=== PATIENT | female | born 1975 | race Caucasian/White ===

== ENCOUNTER → 2016-11-21 | Outpatient (REF) | payer BC ==
[~2016-11-21] MED LIST: FLEX10TA2 PO; META800T82 PO; NORCOTAB PO; TYLE325T5 PO
== END ==
LOC: M LAB REF 09:57
PROVIDERS: ATTEND Physician Assistant Medical
DX: N39.0 Urinary tract infection, site not specified (principal)

== ENCOUNTER → 2017-03-31 | Outpatient (REF) ==
--- NOTE | 2017-03-31 07:58 | REPMRS ---
Patient History The patient states she had a clinical breast exam in March 2017.Patient is nulliparous. No known family history of cancer. Digital Mammo Screening Bilat: March 31, 2017 - Exam #: [id number] Bilateral CC and MLO view(s) were taken. Technologist: Halima Shen, Technologist No prior studies available for comparison. FINDINGS: There are scattered fibroglandular densities. There is no evidence of dominant mass, architectural distortion, or clustered microcalcification typical of malignancy. ASSESSMENT: BI-RADS/ACR category 1 mammogram. Negative. Recommendation Routine screening mammogram of both breasts in 1 year (for women over age 40). This mammogram was interpreted with the aid of an FDA-approved computer-aided dectection system. Electronically Signed By: Akira Paredes MD 03/31/17 0757
== END ==
LOC: M RAD 07:18 → EDSTATUS 07:30
PROVIDERS: ATTEND Nurse Practitioner Family
DX: Z12.31 Encounter for screening mammogram for malignant neoplasm of breast (principal)

== ENCOUNTER → 2018-04-04 | Outpatient (CLI) | payer OTHER | LOC: M RAD 08:15 | DX: Z12.31 Encounter for screening mammogram for malignant neoplasm of breast (principal) | CPT/HCPCS: 77067 ==

== ENCOUNTER → 2018-07-05 | Outpatient (CLI) | payer OTHER ==
[2018-07-05 10:17] LABS: ALBUMIN 3.7 GM/DL (3.2-5.2); ALBUMIN/GLOBULIN RATIO 1.48 (1.00-1.93); ALKALINE PHOSPHATASE 60 U/L (45-117); ALT/SGPT 21 U/L (12-78); ANION GAP 7 MEQ/L (8-16); AST/SGOT 12 U/L (7-37); BILIRUBIN,TOTAL 0.3 MG/DL (0.2-1.0); BLOOD UREA NITROGEN 12 MG/DL (7-18); CALCIUM LEVEL 8.8 MG/DL (8.5-10.1); CARBON DIOXIDE LEVEL 25 MEQ/L (21-32); CHLORIDE LEVEL 110 MEQ/L (98-107); CREATININE FOR GFR 0.66 MG/DL (0.55-1.30); GLOMERULAR FILTRATION RATE > 60.0 (>58); GLUCOSE, FASTING 92 MG/DL (70-100); SODIUM LEVEL 142 MEQ/L (136-145); TOTAL PROTEIN 6.2 GM/DL (6.4-8.2)
[2018-07-05 10:21] LABS: TOTAL 25(OH) VITAMIN D 14.1 NG/ML (30.0-100.0)
[2018-07-05 10:23] LABS: FOLATE > 24.0 NG/ML
== END ==
LOC: M LAB 08:59
DX: G44.221 Chronic tension-type headache, intractable (principal); G43.009 Migraine without aura, not intractable, without status migrainosus

== ENCOUNTER 2019-04-04 13:06 | Emergency (ER) | payer OTHER ==
[~2019-04-04] VITALS: Ht 157.5 cm; Wt 99.5 kg
[2019-04-04] MEDS ORDERED: PANT40TA3 (13:17)
[2019-04-04] MEDS ORDERED: BACL1TAB9 PO (13:17)
[2019-04-04] MEDS ORDERED: VITA500045 (13:17)
[2019-04-04] MEDS ORDERED: AMIT25TA (13:17)
[2019-04-04] MEDS ORDERED: GABA600T4 PO (13:17)
[2019-04-04] MEDS ORDERED: TRAZ-257 PO (13:17)
[2019-04-04] MEDS ORDERED: VALA500T5 PO (13:17)
[2019-04-04] MEDS ORDERED: TOPI100T9 PO (13:17)
[2019-04-04] MEDS ORDERED: CITA20TA6 (13:17)
[2019-04-04] MEDS ORDERED: DIAZ5TAB PO (13:17)
[2019-04-04] MEDS ORDERED: HYDR-4571 (13:17)
[2019-04-04] MEDS ORDERED: ONDANSETRON 4 MG ORAL DISINTEGRATING TAB (Q0162 PER 1MG) PO ONE (19:30)
[2019-04-04] MEDS ORDERED: GI COCKTAIL 50ML BTL(HYOSCYAMINE/MAALOX/LIDOCAINE VISCOUS)(1:3:1) PO ONE (19:45)
[2019-04-04 20:00] LABS: BASO # 0.1 10^3/uL (0.0-0.2); EOS # 0.1 10^3/uL (0.0-0.50); EOS % 2.1 % (0.0-3.0); HEMATOCRIT 40.8 % (36.0-47.0); HEMOGLOBIN 13.7 g/dl (12.0-15.5); LYMPH # 2.2 10^3/uL (1.5-4.5); LYMPH % 41.4 % (24.0-44.0); MEAN CORPUSCULAR HEMOGLOBIN 32.3 pg (27.0-33.0); MEAN CORPUSCULAR HGB CONC 33.6 g/dl (32.0-36.5); MEAN CORPUSCULAR VOLUME 96.2 fl (80.0-96.0); MONO # 0.3 10^3/uL (0.0-0.8); MONO % 5.8 % (0.0-5.0); NEUTROPHILS # 2.6 10^3/uL (1.8-7.7); NEUTROPHILS % 49.5 % (36.0-66.0); PLATELET COUNT, AUTOMATED 228 10^3/uL (150-450); RED BLOOD COUNT 4.24 10^6/uL (4.00-5.40); WHITE BLOOD COUNT 5.2 10^3/uL (4.0-10.0)
[2019-04-04] MEDS ORDERED: MORPHINE 4 MG/ML 1ML VIAL/SYRINGE (J2270) IV ONE (20:15)
[2019-04-04] MEDS ORDERED: NS 1,000 ML IV ONE (20:15)
[2019-04-04 20:27] LABS: ALBUMIN 4.2 GM/DL (3.2-5.2); BILIRUBIN,DIRECT 0.1 MG/DL (0.0-0.2); BILIRUBIN,TOTAL 0.3 MG/DL (0.2-1.0); TOTAL PROTEIN 7.2 GM/DL (6.4-8.2)
[2019-04-04] MEDS ORDERED: ISOVUE-370 76% 100ML VIAL (Q9967) As Ordered ONE (21:02)
[2019-04-04] MEDS ORDERED: METOCLOPRAMIDE INJ 10MG/2ML VIAL (J2765) IV ONE (22:00)
--- NOTE | 2019-04-04 22:19 | REPVR ---
EXAM: CT Abdomen and Pelvis With Contrast EXAM DATE/TIME: 04/04/2019 9:17 PM CLINICAL HISTORY: 43 years old, female; Abdominal pain; Localized; Left upper quadrant (luq); Additional info: Left upper abd pain TECHNIQUE: Imaging protocol: Axial computed tomography images of the abdomen and pelvis with intravenous contrast. Coronal and sagittal reformatted images were created and reviewed. Radiation optimization: All CT scans at this facility use at least one of these dose optimization techniques: automated exposure control; mA and/or kV adjustment per patient size (includes targeted exams where dose is matched to clinical indication); or iterative reconstruction. Contrast material: ISOVUE 370; Contrast volume: 100 ml; Contrast route: IV; COMPARISON: CT ABD PELVIS W/O CONTRAST 06/05/2013 1:27 PM FINDINGS: Liver: There is a diffuse decrease in hepatic parenchymal density, consistent with fatty infiltration. Gallbladder and bile ducts: There has been a cholecystectomy. Pancreas: Normal. No ductal dilation. Spleen: Normal. No splenomegaly. Adrenals: Normal. No mass. Kidneys and ureters: Left renal cysts measure up to 5.7 x 5.5 cm. Otherwise unremarkable. Stomach and bowel: This patient is status post gastric bypass surgery. Multiple thickwalled loops of small bowel in the upper abdomen, findings which may indicate the presence of enteritis or inflammatory bowel disease. There is increased feces throughout the colon consistent with constipation. Appendix: There has been an appendectomy. Intraperitoneal space: Normal. No free air. No significant fluid collection. Vasculature: Normal. No abdominal aortic aneurysm. Lymph nodes: Normal. No enlarged lymph nodes. Bladder: Unremarkable as visualized. Reproductive: IUD demonstrated in a dextro tilted uterus. Bones/joints: Moderate central spinal stenosis at L2-3, L3-4, L4-5. Soft tissues: Unremarkable. Other findings: Shallow levoscoliosis. IMPRESSION: 1. There is a diffuse decrease in hepatic parenchymal density, consistent with fatty infiltration. 2. There has been a cholecystectomy. 3. This patient is status post gastric bypass surgery. 4. Multiple thickwalled loops of small bowel in the upper abdomen, findings which may indicate the presence of enteritis or inflammatory bowel disease. 5. There is increased feces throughout the colon consistent with constipation. Electronically signed by: Zhao Parish On 04/04/2019 22:19:10 PM
[2019-04-04] MEDS ORDERED: MIRA3350 PO (22:31)
[2019-04-04 22:47] VITALS: BP 130/80
--- NOTE | 2019-04-05 10:33 | ECGEPIP ---
[facility] - ED Test Date: 2019-04-04 Pat Name: LILY ROBLEDO Department: Room: - Gender: Female Machine Icer: MICHAEL : 1975 Requested By: Salomon Camejo Order Number: [id number] Reading MD: Violet Myrick Measurements Intervals [place] Rate: 50 P: 40 MT: 154 QRS: 57 QRSD: 93 T: 55 QT: 437 QTc: 400 Interpretive Statements SINUS BRADYCARDIA No prior Electronically Signed on 04-05-2019 10:33:27 EDT by Violet Myrick
[2019-10-01] MEDS ORDERED: QC A650T3 PO (11:34)
[2019-10-01] MEDS ORDERED: LINZ145C PO (11:34)
[2019-10-01] MEDS ORDERED: NORC1TAB7 PO (11:34)
[2019-10-01] MEDS ORDERED: BRONCHW PO (11:34)
[2019-10-01] MEDS ORDERED: COLA100C5 PO (11:34)
[2019-10-01] MEDS ORDERED: ZOFR4TAB16 PO (11:34)
[2019-10-01] MEDS ORDERED: MAGN250T7 PO (11:34)
[2019-10-01] MEDS ORDERED: VITA200028 PO (11:34)
== END 2019-04-04 22:51 | disposition home or self-care (01) ==
LOC: M ED 13:06
DX: K52.9 Noninfective gastroenteritis and colitis, unspecified (principal); K59.00 Constipation, unspecified; R00.1 Bradycardia, unspecified; K21.9 Gastro-esophageal reflux disease without esophagitis; M54.9 Dorsalgia, unspecified; G51.0 Bell's palsy; Z98.84 Bariatric surgery status; Z88.0 Allergy status to penicillin; Z88.2 Allergy status to sulfonamides; Z88.1 Allergy status to other antibiotic agents; Z79.899 Other long term (current) drug therapy
CPT/HCPCS: 36415; 74177; 80047; 80076; 81001; 83690; 84702; 85025; 93005; 96374; 96375; 99284; J2270; J2765; Q0162; Q9967

== ENCOUNTER → 2019-04-11 | Outpatient (CLI) | payer OTHER ==
[~2019-04-11] MED LIST changes: +AMIT25TA; +BACL1TAB9; +CITA20TA6; +DIAZ5TAB; +GABA600T4; +HYDR-4571; +MIRA3350 PO; +PANT40TA3; +TOPI100T9; +TRAZ-163; +VALA500T5; +VITA500045
--- NOTE | 2019-04-11 16:12 | REPMRS ---
Patient History The patient states she had a clinical breast exam in March 2019. No known family history of cancer. Bilateral breast reduction 2006 3D TOMOSYNTHESIS WAS PERFORMED. [facility] lifetime risk for breast cancer is 15.5%. Digital Mammo Screening Bilat: April 11, 2019 - Exam #: [id number] Bilateral CC and MLO view(s) were taken. Technologist: Monica Dominguez, Technologist Prior study comparison: April 04, 2018, bilateral digital mammo screening bilat performed at [facility]. March 31, 2017, bilateral digital mammo screening bilat performed at [facility]. FINDINGS: There are scattered fibroglandular densities. There has been no change in the appearance of the mammogram from the prior studies. There is a mild amount of residual fibroglandular tissue which is fairly symmetric. There is no interval development of dominant mass, architectural distortion, or clustered microcalcification suggestive of malignancy. Assessment: BI-RADS/ACR category 1 mammogram. Negative Mammogram. Recommendation Routine screening mammogram in 1 year (for women over age 40). This mammogram was interpreted with the aid of an FDA-approved computer-aided dectection system. Electronically Signed By: Stewart Bradford MD 04/11/19 2628
== END ==
LOC: M RAD 14:26
PROVIDERS: ATTEND Nurse Practitioner Family
DX: Z12.31 Encounter for screening mammogram for malignant neoplasm of breast (principal); Z98.890 Other specified postprocedural states

== ENCOUNTER → 2019-09-05 | Outpatient (CLI) | payer OTHER ==
[2019-09-05 09:01] LABS: MEAN CORPUSCULAR HEMOGLOBIN 31.8 pg (27.0-33.0); MEAN CORPUSCULAR HGB CONC 32.6 g/dl (32.0-36.5); MEAN CORPUSCULAR VOLUME 97.7 fl (80.0-96.0); PLATELET COUNT, AUTOMATED 219 10^3/uL (150-450); WHITE BLOOD COUNT 3.8 10^3/uL (4.0-10.0)
[2019-09-05 09:32] LABS: ALBUMIN 3.9 GM/DL (3.2-5.2); ALT/SGPT 30 U/L (12-78); BILIRUBIN,TOTAL 0.4 MG/DL (0.2-1.0); BLOOD UREA NITROGEN 11 MG/DL (7-18); CALCIUM LEVEL 8.6 MG/DL (8.5-10.1); CARBON DIOXIDE LEVEL 25 MEQ/L (21-32); CHLORIDE LEVEL 113 MEQ/L (98-107); CREATININE FOR GFR 0.69 MG/DL (0.55-1.30); GLOMERULAR FILTRATION RATE > 60.0 (>58); GLUCOSE, FASTING 82 MG/DL (70-100); IRON (FE) 121 UG/DL (50-170); SODIUM LEVEL 143 MEQ/L (136-145); TOTAL PROTEIN 6.5 GM/DL (6.4-8.2)
== END ==
LOC: M LAB 07:36
PROVIDERS: ATTEND Family Medicine
DX: E16.2 Hypoglycemia, unspecified (principal); F41.9 Anxiety disorder, unspecified; K21.9 Gastro-esophageal reflux disease without esophagitis; Z13.0 Encounter for screening for diseases of the blood and blood-forming organs and certain disorders involving the immune mechanism; Z13.29 Encounter for screening for other suspected endocrine disorder

== ENCOUNTER → 2019-09-05 | Outpatient (CLI) | payer OTHER ==
[~2019-09-05] MED LIST changes: +E-Z-PAQUE 96% w/w SUSP 176GM BTL As Ordered ONE
--- NOTE | 2019-09-05 16:22 | REP ---
Small bowel follow-through The procedure was performed under the direct supervision of Dr. Bradford. The images were reviewed with Dr. Bardford. The manager product support film shows no organomegaly or pathological masses. The intestinal gas pattern is nonspecific. There are surgical clips noted in the right upper quadrant. There are bowel sutures noted in the epigastric region and left abdomen consistent with the patient's history of gastric bypass. There is an IUD in place. Liquid barium was administered and the barium column was followed through the small bowel to the level of the terminal ileum. Small bowel transit time is approximately 90 minutes. . During fluoroscopy gentle palpation shows all loops are freely movable and pliable. There are no fixed or angulated loops. The small bowel mucosal pattern is normal in course and caliber. There is no transition to suggest a partial small bowel obstruction. Spot filming of the terminal ileum shows it to be unremarkable. Impression: Small bowel follow-through examination within normal limits. 1.9 minutes of fluoro time was utilized for this procedure. Electronically Signed by SANDRA Maldonado 09/05/2019 04:07 P Electronically Signed by Stewart Bradford MD 09/05/2019 04:13 P
== END ==
LOC: M RAD 07:33
PROVIDERS: ATTEND Surgery
DX: R10.84 Generalized abdominal pain (principal)

== ENCOUNTER 2019-10-05 07:54 | Day surgery (SDC) | payer OTHER ==
[~2019-10-05] VITALS: Ht 157.5 cm; Wt 97.0 kg
[~2019-10-05 07:54] MED LIST changes: -BACL1TAB9; +BACL1TAB9 PO; +BRONCHW PO; +COLA100C5 PO; -DIAZ5TAB; +DIAZ5TAB PO; -E-Z-PAQUE 96% w/w SUSP 176GM BTL As Ordered ONE; -GABA600T4; +GABA600T4 PO; +LINZ145C PO; +LR 1,000 ML IV ONE; +MAGN250T7 PO; +NORC1TAB7 PO; +QC A650T3 PO; -TOPI100T9; +TOPI100T9 PO; -TRAZ-163; +TRAZ-163 PO; -VALA500T5; +VALA500T5 PO; +VITA200028 PO; +ZOFR4TAB16 PO
[2019-10-05] MEDS ORDERED: SCOPOLAMINE 1MG TRANSDERMAL PATCH As Ordered ONE (09:14)
[2019-10-05] MEDS ORDERED: SCOPOLAMINE 1MG TRANSDERMAL PATCH TOP ONE (09:30)
[2019-10-05] MEDS ORDERED: MIDAZOLAM INJ 2 MG/2 ML VIAL (J2250) As Ordered ONE (09:35)
[2019-10-05] MEDS ORDERED: fentaNYL 250 MCG/5 ML INJECTION (J3010) As Ordered ONE (09:35)
[2019-10-05] MEDS ORDERED: PROPOFOL 200 MG/20 ML VIAL As Ordered ONE (09:37)
[2019-10-05] MEDS ORDERED: LIDOCAINE 2% INJ 100 MG/5 ML SDV (FOR ANES.) As Ordered ONE (09:37)
[2019-10-05] MEDS ORDERED: dexameTHASONE 4 MG/ML 1ML VIAL (J1100) As Ordered ONE (09:38)
[2019-10-05] MEDS ORDERED: ROCURONIUM BROMIDE 50 MG/5 ML VIAL As Ordered ONE (09:38)
[2019-10-05] MEDS ORDERED: ONDANSETRON 4MG/2ML VIAL (J2405) As Ordered ONE (09:38)
[2019-10-05] MEDS ORDERED: BUPIVACAINE/EPIN 0.25% 30 ML VIAL As Ordered ONE (11:00)
[2019-10-05] MEDS ORDERED: ACETAMINOPHEN 1000MG 100ML IV BTL (OFIRMEV) (J0131 PER 10MG) As Ordered ONE (11:38)
[2019-10-05] MEDS ORDERED: SUGAMMADEX SODIUM 500 MG/5 ML VIAL (BRIDION) As Ordered ONE (11:45)
[2019-10-05] MEDS ORDERED: oxyCODONE 5MG TAB As Ordered ONE (12:10)
[2019-10-05] MEDS ORDERED: fentaNYL 100 MCG/2 ML INJECTION (J3010) As Ordered ONE (12:10)
[2019-10-05] MEDS: fentaNYL 100 MCG/2 ML INJECTION (J3010) IV PRN ×3 (12:15→12:29)
[2019-10-05] MEDS: oxyCODONE 5MG TAB PO PRN ×2 (12:15→13:16)
[2019-10-05] MEDS ORDERED: ONDANSETRON 4MG/2ML VIAL (J2405) IV PRN (13:00)
[2019-10-05] MEDS ORDERED: LR 1,000 ML IV SCH (13:00)
[2019-10-05] MEDS ORDERED: NORCO, ANEXSIA 5/325MG TABLET (HYDROcodone/ACETAMINOPHEN) PO PRN (14:00)
--- NOTE | 2019-10-05 14:39 | RO ---
DATE OF PROCEDURE: 10/05/2018 PREOPERATIVE DIAGNOSIS: Left lower quadrant pain. POSTOPERATIVE DIAGNOSIS: Large left ovarian mass, small umbilical hernia. No adhesions. PROCEDURE: Diagnostic laparoscopy. SURGEON: Dr. Segura. GUNNERY/ORDNANCE OFFICER: None ANESTHESIA: General. ESTIMATED BLOOD LOSS: 2 mL. COMPLICATIONS: None. INDICATIONS FOR PROCEDURE: The patient is 44-year-old female who has had a few abdominal surgeries in the past and has had persistent left lower quadrant pain that doubles her over for the past couple years. The pain is intermittent. Workup has been negative so far so recommendation was to proceed with diagnostic laparoscopy. Risks and benefits of the procedure, not limited to but including bleeding, infection, hernia formation, damage to surrounding structures, need for further surgery were discussed in detail with the patient. Informed consent was obtained and procedure was planned. DESCRIPTION OF PROCEDURE: The patient brought back to operating room 6. After sufficient sedation, the abdomen was sterilely prepped and draped. Next, time-out was done to confirm proper patient and proper procedure. Following that, a 5 mm incision was made in left lower quadrant, Veress needle was inserted and the abdomen was insufflated to 15 mmHg. Veress needle was then removed and a 5 mm OptiView port was used to gain access to the abdomen. Once the abdomen was entered, the abdomen was examined. There were no signs of any adhesions or masses anywhere. Another 5 mm port was then placed in the left lower quadrant. The patient was then placed in Trendelenburg position. The pelvis was examined. There is a very large ovary identified on the left side. Very large, smooth surface to it. The right side appeared normal. Pictures were taken. Dr. Barr was in the next room and I had him come over and evaluate it. 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 Since she was not consented for that, I told him we would hold off and I would send her to him office afterwards. The rest of the abdomen was examined. There was a very tiny umbilical hernia identified, nothing was even protruding up through it, just a small defect since there were no signs of any fat or anything protruding through it, I decided not to fix that at this time. The small bowel and sigmoid were mobilized in the left lower quadrant looking for any other masses or adhesions that may have been hiding and nothing else was identified. The abdomen was then desufflated. Skin incisions were closed with 4-0 Vicryl subcuticular sutures. The abdomen was cleaned and dried. Steri-Strips, 4x4 and tape were applied, thus ending procedure.
[2019-10-05 14:45] VITALS: BP 95/53
== END 2019-10-05 14:50 | disposition home or self-care (01) ==
LOC: M SDC 07:54
PROVIDERS: ATTEND Surgery
DX: N83.9 Noninflammatory disorder of ovary, fallopian tube and broad ligament, unspecified (principal); K42.9 Umbilical hernia without obstruction or gangrene; K21.9 Gastro-esophageal reflux disease without esophagitis; M48.00 Spinal stenosis, site unspecified; M51.9 Unspecified thoracic, thoracolumbar and lumbosacral intervertebral disc disorder; D51.0 Vitamin B12 deficiency anemia due to intrinsic factor deficiency; K59.09 Other constipation; G43.909 Migraine, unspecified, not intractable, without status migrainosus; F39 Unspecified mood [affective] disorder; Z98.84 Bariatric surgery status; Z88.1 Allergy status to other antibiotic agents; Z88.0 Allergy status to penicillin; Z88.2 Allergy status to sulfonamides; Z79.899 Other long term (current) drug therapy
CPT/HCPCS: 49320; 81025; J0131; J1100; J2250; J2405; J3010

== ENCOUNTER → 2019-11-05 | Outpatient (CLI) | payer OTHER ==
[~2019-11-05] MED LIST changes: +ISOVUE-370 76% 100ML VIAL (Q9967) As Ordered ONE; -LR 1,000 ML IV ONE; -TRAZ-163 PO; +TRAZ-257 PO
--- NOTE | 2019-11-06 07:48 | REP ---
Clinical: Ovarian cyst. Technique: Axial contrast enhanced images from the lung bases to the pubic symphysis using 100 ml Isovue 370 intravenous contrast material with coronal and sagittal re-formations including pre and postcontrast CT of the abdomen. Comparison: 04/04/2019. Findings: Lung bases are relatively clear. Calcified granuloma noted. Visualized heart and pericardium normal. Liver, spleen, pancreas, bilateral adrenal glands and right kidney are normal. Left kidney includes few simple cysts measuring up to approximately 5.7 cm maximal diameter. Evidence of prior cholecystectomy. The enteric system demonstrates small hiatal hernia along with evidence for prior gastric bypass surgery and appendectomy. No bowel obstruction or acute inflammatory process noted. Small fat containing periumbilical hernia identified. Pelvis demonstrates normal bladder and age-appropriate uterus/adnexa with IUD in satisfactory position. 2 cm rim enhancing right ovarian cyst nonspecific and likely physiologic. Impression: 1. Stable simple appearing left renal cysts up to 5.7 cm. 2. Small hiatal hernia. 3. Small fat containing periumbilical hernia. 4. Presumed incidental and likely physiologic 2 cm right ovarian cyst. Electronically Signed by Schuyler Mckinnon MD 11/06/2019 07:40 A
== END ==
LOC: M RAD 17:45
PROVIDERS: ATTEND Nurse Practitioner Family
DX: N83.202 Unspecified ovarian cyst, left side (principal)
CPT/HCPCS: 74178; Q9967

== ENCOUNTER → 2020-02-05 | Outpatient (REF) | payer OTHER ==
[~2020-02-05] MED LIST changes: -ISOVUE-370 76% 100ML VIAL (Q9967) As Ordered ONE
== END ==
LOC: M PLALAB 15:22
PROVIDERS: ATTEND Obstetrics & Gynecology
DX: Z01.419 Encounter for gynecological examination (general) (routine) without abnormal findings (principal)

== ENCOUNTER → 2020-04-30 | Outpatient (CLI) | payer OTHER ==
[~2020-04-30] MED LIST changes: +PANT40TA29; -PANT40TA3
--- NOTE | 2020-05-25 09:34 | REPMRS ---
Patient History The patient states she had a clinical breast exam in 02/2020. Patient is nulliparous. No known family history of cancer. Reductions of both breasts, 2006. Taking hormonal contraceptives for 25 years. Digital Woman Screen Mammo: April 30, 2020 - Exam #: [id number] Bilateral CC and MLO view(s) were taken. Technologist: Adelaide Booker, Technologist Prior study comparison: April 11, 2019, bilateral digital mammo screening bilat, performed at [facility]. April 04, 2018, bilateral digital mammo screening bilat, performed at [facility]. March 31, 2017, bilateral digital mammo screening bilat, performed at [facility]. FINDINGS: There are scattered fibroglandular densities. There has been no change in the appearance of the mammogram from the prior studies. There is a mild amount of scattered fibroglandular density which is fairly symmetric. There is no interval development of dominant mass, architectural distortion, or grouped microcalcification suggestive of malignancy. 3-D tomosynthesis shows no additional findings. Report was delayed due to a protracted network disruption experienced by this facility. Assessment: BI-RADS/ACR category 1 mammogram. Negative Mammogram. Recommendation Routine screening mammogram of both breasts in 1 year (for women over age 40). This patient's Lifetime Breast Cancer Risk is estimated at 15.3 %. This mammogram was interpreted with the aid of an FDA-approved computer-aided dectection system. Electronically Signed By: Akira Paredes MD 05/25/20 0933
== END ==
LOC: M WHC 17:11
PROVIDERS: ATTEND Obstetrics & Gynecology
DX: Z12.31 Encounter for screening mammogram for malignant neoplasm of breast (principal); Z79.3 Long term (current) use of hormonal contraceptives

== ENCOUNTER → 2020-07-10 | Outpatient (CLI) | payer OTHER | LOC: M LABSMTC 12:25 | PROVIDERS: ATTEND Pediatrics | DX: Z20.828 Contact with and (suspected) exposure to other viral communicable diseases (principal) | CPT/HCPCS: C9803; U0003 ==

== ENCOUNTER → 2020-09-30 | Outpatient (CLI) | payer OTHER | LOC: M LAB 11:25 | PROVIDERS: ATTEND Family Medicine | DX: Z01.84 Encounter for antibody response examination (principal); Z20.828 Contact with and (suspected) exposure to other viral communicable diseases ==

== ENCOUNTER → 2020-10-14 | Outpatient (CLI) | payer OTHER ==
[~2020-10-14] MED LIST changes: -AMIT25TA; +AMIT25TA17
[2020-10-14 10:24] LABS: ALBUMIN 3.7 GM/DL (3.2-5.2); ALT/SGPT 21 U/L (12-78); BILIRUBIN,TOTAL 0.5 MG/DL (0.2-1.0); BLOOD UREA NITROGEN 10 MG/DL (7-18); CALCIUM LEVEL 8.8 MG/DL (8.5-10.1); CARBON DIOXIDE LEVEL 24 MEQ/L (21-32); CHLORIDE LEVEL 111 MEQ/L (98-107); CREATININE FOR GFR 0.84 MG/DL (0.55-1.30); FREE T4 0.97 NG/DL (0.76-1.46); GLOMERULAR FILTRATION RATE > 60.0 (>58); GLUCOSE, FASTING 86 MG/DL (70-100); POTASSIUM SERUM 4.4 MEQ/L (3.5-5.1); SODIUM LEVEL 141 MEQ/L (136-145); THYROID STIMULATING HORMONE 0.992 uIU/ML (0.358-3.740); TOTAL PROTEIN 6.5 GM/DL (6.4-8.2)
== END ==
LOC: M LAB 09:08
PROVIDERS: ATTEND Nurse Practitioner Critical Care Medicine
DX: R10.13 Epigastric pain (principal)

== ENCOUNTER → 2020-10-20 | Outpatient (CLI) | payer OTHER ==
[~2020-10-20] MED LIST changes: +E-Z-GAS II EFFERVESCENT PACKET (SODIUM BICARB./CITRIC ACID/SIMETHICONE) As Ordered ONE; +E-Z-HD 98% w/w 340GM SUSP BTL As Ordered ONE; +E-Z-PAQUE 96% w/w SUSP 176GM BTL As Ordered ONE
--- NOTE | 2020-10-20 18:08 | REP ---
INDICATION: EPIGASTRIC PAIN. COMPARISON: None TECHNIQUE: This procedure was performed by Kimi Mast [facility], under the direct supervision of Dr. Bradford. Images were reviewed with Dr. Bradford prior to dictation. Because the patient is status post Sundar-en-Y surgery liquid barium was given in the erect position as well as in the prone oblique position in order to perform a single contrast upper GI examination. FINDINGS: The sweatband decorating machine operator film shows no organomegaly or pathological masses. The intestinal gas pattern is unremarkable. The oral and pharyngeal stages of deglutition were unremarkable. Esophageal transport is prompt and efficient and there is no evidence of esophagitis, stricture, or mucosal ring. There is evidence of a small hiatal hernia most likely surgical. There was no gastroesophageal reflux noted . The remaining stomach kahn are normally outlined. There is free flow of contrast through the anastomosis into the small intestine. No stricture or ulcer is visualized. The visualized portion of the proximal small bowel appears normal in course and caliber. Additional liquid barium was administered at the end of the end of the exam and followed through the small bowel to the level of the terminal ileum. Small bowel transit time is approximately 90 minutes. During fluoroscopy gentle palpation shows all loops are freely movable and pliable. There are no fixture angulated loops. The small bowel mucosal pattern is normal in course and caliber. There is no transition to suggest a partial small bowel obstruction. Spot filming of the terminal ileum shows it to be unremarkable. IMPRESSION: Unremarkable upper GI and small-bowel follow-through in a patient status post Sundar-en-Y surgery. 0.4 minutes of fluoroscopy time was utilized for this procedure. Some fluoroscopic images are performed with last image hold technology. These images require no additional radiation. <Electronically signed by Kimi Mast > 10/20/20 1456 <Electronically signed by Stewart Bradford > 10/20/20 7921
== END ==
LOC: M RAD 07:39
PROVIDERS: ATTEND Nurse Practitioner Critical Care Medicine
DX: R10.13 Epigastric pain (principal); K44.9 Diaphragmatic hernia without obstruction or gangrene

== ENCOUNTER → 2020-12-29 | Outpatient (REF) ==
[~2020-12-29] MED LIST changes: -E-Z-GAS II EFFERVESCENT PACKET (SODIUM BICARB./CITRIC ACID/SIMETHICONE) As Ordered ONE; -E-Z-HD 98% w/w 340GM SUSP BTL As Ordered ONE; -E-Z-PAQUE 96% w/w SUSP 176GM BTL As Ordered ONE
== END ==
LOC: M LABSMTC 11:26
PROVIDERS: ATTEND Pediatrics
DX: Z11.52 Encounter for screening for COVID-19 (principal)

== ENCOUNTER → 2021-04-01 | Outpatient (CLI) | payer OTHER ==
--- NOTE | 2021-04-03 00:22 | ECWPNPC ---
PATIENT NAME: LILY ROBLEDO : 1975 GENDER: FEMALE VISIT DATE: 04/01/2021 DISCHARGE DATE: 04/01/21 1341 VISIT LOCKED DATE TIME: PHYSICIAN: MILANA MORFIN RESOURCE: MILANA MORFIN REASON FOR APPOINTMENT 1. BACK HISTORY OF PRESENT ILLNESS DEPRESSION SCREENING: PHQ-2 (2015 EDITION) LITTLE INTEREST OR PLEASURE IN DOING THINGS?NOT AT ALL FEELING DOWN, DEPRESSED, OR HOPELESS?NOT AT ALL TOTAL SCORE0 GENERAL: PLEASANT 45-YEAR-OLD FEMALE REFERRED BY [facility] FOR CHRONIC LOW BACK PAIN. REPORTS LONG HISTORY OF LOW BACK PAIN THAT BEGAN APPROXIMATELY IN 2011. DENIES PRECIPITATING EVENT AT THAT POINT IN TIME. DID FALL ON ICE IN 2013 AND PAIN INCREASED AT THAT POINT. HAS BEEN FOLLOWING WITH [facility] FOR SEVERAL YEARS AND RECEIVING TRIGGER POINT INJECTIONS AND PREDNISONE PACKS 2-3 TIMES A YEAR OVER THE PAST SEVERAL YEARS AND THAT HAS MANAGED HER PAIN. 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 STATES SHE TAKES ACETAMINOPHEN 1500 MG TWICE DAILY. ON RARE OCCASIONS SHE HAS TO USE A HYDROCODONE. MRI OF THE LS SPINE IS REVIEWED. DISCUSSED TREATMENT PLAN. DENIES BOWEL OR BLADDER INCONTINENCE. DENIES SADDLE PARESTHESIAS. DENIES RECENT ILLNESS OR SUDDEN WEIGHT LOSS. - - -. FALL RISK SCREENING: SCREENING : NO FALLS REPORTED IN THE LAST YEAR . PAIN SCREENING: PATIENT HAS A COMPLAINT OF ACUTE OR CHRONIC PAIN :YES LOCATION OF PAIN:LOW BACK INTENSITY OF PAIN (SCALE OF 1 TO 10):2 WHAT DOES YOUR PAIN FEEL LIKE:TENDER DULL DURATION:INTERMITTENT END OF DAY AND THE START OF THE DAY PAIN IS INCREASED BY:ACTIVITIES PAIN IS DECREASED BY:OTHERS HEATING PAD, RESTING NURSING NOTE: - - -. PAIN CENTER INTAKE QUESTIONS: DO YOU HAVE A HISTORY OF MRSA? :NO DO YOU TAKE A BLOOD THINNERS? :NO DO YOU HAVE ANY BLEEDING DISORDERS? :NO ANY NEW NUMBNESS OR WEAKNESS IN YOUR LEGS OR ARMS? :NO ANY PACEMAKER,DEFIBRILLATOR, OR DORSAL COLUMN STIMULATOR? :NO DO YOU HAVE ANY RASHES OR OPEN SORES? :NO ARE YOU ALLERGIC TO IV DYE? :NO ARE YOU DIABETIC? :NO ANY NEW PROBLEMS WITH YOUR MEDICATIONS? :NO HAVE YOU RECEIVED A VACCINE IN THE PAST 30 DAYS? :NO DO YOU PLAN TO RECEIVE A VACCINE IN THE NEXT 21 DAYS? :NO DO YOU NEED ANY PRESCRIPTION? :NO DO YOU TAKE ANY IMMUNOSUPPRESSIVE MEDICATIONS? :NO IS THERE A CHANCE YOU COULD BE ? :NO ARE YOU BREAST FEEDING? :NO CURRENT MEDICATIONS TAKING EPIPEN TAKING FIBER - TABLET DIRECTED ORALLY TAKING FLONASE ALLERGY RELIEF 50 MCG/ACT SUSPENSION 1 SPRAY IN EACH NOSTRIL NASALLY ONCE A DAY TAKING METHOCARBAMOL 500 MG TABLET 1.5 TABLETS ORALLY EVERY 4 HRS TAKING NASAL MOISTURIZING SPRAY 0.65 % SOLUTION 2 SPRAYS IN EACH NOSTRIL NEEDED NASALLY EVERY 2 HRS TAKING TOPAMAX 100 MG TABLET 1 TABLET ORALLY ONCE A DAY TAKING TRAZODONE HCL 100 MG TABLET 1 TABLET AT BEDTIME ORALLY ONCE A DAY TAKING MAGNESIUM 500 MG TABLET 1 TABLET WITH A MEAL ORALLY ONCE A DAY TAKING COLACE 100 MG CAPSULE 2 CAPSULE NEEDED ORALLY ONCE A DAY TAKING ZYRTEC ALLERGY 10 MG TABLET 1 TABLET ORALLY ONCE A DAY TAKING HYDROCODONE-ACETAMINOPHEN 5-325 MG TABLET 1 TABLET NEEDED ORALLY NEEDED TAKING ZOFRAN 4 MG TABLET 1 TABLET ORALLY ONCE A DAY TAKING IMITREX 5 MG/ACT SOLUTION 1 SPRAY AT ONSET OF HEADACHE IN ONE NOSTRIL MAY REPEAT DOSE AFTER 2 HOURS NEEDED NASALLY ONCE A DAY TAKING MOTEGRITY 2 MG TABLET 1 TABLET ORALLY ONCE A DAY NOT-TAKING CLONAZEPAM 0.5 MG TABLET 1 TABLET AT BEDTIME ORALLY ONCE A DAY- NEEDED NOT-TAKING VOLTAREN 1 % GEL DIRECTED EXTERNALLY NOT-TAKING VITAMIN B 12 100 MCG LOZENGE DIRECTED ORALLY NOT-TAKING VALTREX 500 MG TABLET 1 TABLET ORALLY ONCE A DAY NOT-TAKING GABAPENTIN 600 MG TABLET 1 TABLET ORALLY ONCE A DAY NOT-TAKING BACLOFEN 20 MG TABLET 1 TABLET WITH FOOD OR MILK ORALLY EVERY 8 HRS NOT-TAKING FLINTSTONES COMPLETE - TABLET CHEWABLE DIRECTED ORALLY NOT-TAKING TOPAMAX 100 MG TABLET 1 TABLET ORALLY ONCE A DAY NOT-TAKING PROTONIX 40 MG TABLET DELAYED RELEASE 1 TABLET ORALLY ONCE A DAY NOT-TAKING CELEXA 10 MG TABLET 1 TABLET ORALLY ONCE A DAY NOT-TAKING LINZESS 145 MCG CAPSULE 1 CAPSULE AT LEAST 30 MINUTES BEFORE THE FIRST MEAL OF THE DAY ON AN EMPTY STOMACH ORALLY ONCE A DAY NOT-TAKING TYLENOL 325 MG TABLET 1 TABLET NEEDED ORALLY EVERY 4 HRS NOT-TAKING NORETHINDRONE ACET-ETHINYL EST 1.5-30 MG-MCG TABLET 1 TABLET ORALLY ONCE A DAY MEDICATION LIST REVIEWED AND RECONCILED WITH THE PATIENT PAST MEDICAL HISTORY MIGRAINE HEADACHES ESOPHAGEAL REFLUX PEPTIC ULCER 2006 DEGENERATIVE DISC DISEASE HERNIATED DISC ANEMIA, IRON DEFICIENT SPINAL STENOSIS MOOD DISORDER CONSTIPATION ABDOMIANAL PAIN GERD UTI INFLUENZA 26 AUG 2015 ALLERGIES SULFA: ANAPHYLAXIS, RASH - SIDE EFFECTS MACROBID: ANAPHYLAXIS - SIDE EFFECTS MACRODANTIN: ANAPHYLAXIS - ALLERGY KEFLEX: RASH - ALLERGY CIPRO: RASH - ALLERGY PENICILLINS: ANAPHYLAXIS - SIDE EFFECTS SURGICAL HISTORY GASTRIC BYPASS 2005 GALL BLADDER 2002 KNEE ARTHROSCOPY 1998 ACHILLES TENDON REPAIR 2000 BREAST REDUCTION 2005 LYSIS OF ADHESIONS 2010 TYMPONOSTOMY IRON INFUSION LAPAROTOMY 10/2019 APPENDECTOMY 2011 FAMILY HISTORY FATHER: 63 YRS MOTHER: ALIVE SIBLINGS: ALIVE 3 BROTHER(S) , 2 SISTER(S) - HEALTHY. DIABETES, HTN, SLEEP APNEA, MS, HEART ATTACK, HEART DISEASE, HYPERLIPIDEMIAONE BROTHER FRM CAR ACCIDENT. SOCIAL HISTORY GENERAL: TOBACCO USE ARE YOU A:FORMER SMOKER TEEN YEARS LATEX QUESTIONNAIRE LATEX ALLERGY : HAVE YOU EVER DEVELOPED ANY TYPE OF REACTION AFTER HANDLING LATEX PRODUCTS SUCH RUBBER GLOVES, CONDOMS, DIAPHRAGMS, BALLOONS, SOCKS, OR UNDERWEAR?NO LATEX ALLERGY : HAVE YOU EVER DEVELOPED ANY TYPE OF REACTION DURING OR AFTER DENTAL APPOINTMENT, VAGINAL/RECTAL EXAMINATION, SURGICAL PROCEDURE, OR ANY OTHER EXPOSURE?NO LATEX RISK : HAVE YOU EVER HAD ANY DIFFICULTY BREATHING OR HIVES AFTER EATING OR HANDLING ANY FRUITS, OR VEGETABLES; SUCH KIWI, BANANAS, STONE FRUITS, OR CHESTNUTSNO LATEX RISK : DO YOU HAVE A PREVIOUS PERSONAL HISTORY OF MORE THAN NINE SURGERIES, SPINA BIFIDA, OR REPEATED CATHERIZATIONS? NO LATEX RISK : ARE YOU FREQUENTLY EXPOSED TO LATEX PRODUCTS IN YOUR OCCUPATION?YES DATE ASKED : 04/01/2021 ALCOHOL USE: SOCIAL, YES. ALCOHOL SCREENING DID YOU HAVE A DRINK CONTAINING ALCOHOL IN THE PAST YEAR?YES HOW OFTEN DID YOU HAVE SIX OR MORE DRINKS ON ONE OCCASION IN THE PAST YEAR?NEVER (0 POINTS) HOW MANY DRINKS DID YOU HAVE ON A TYPICAL DAY WHEN YOU WERE DRINKING IN THE PAST YEAR?1 OR 2 (0 POINTS) HOW OFTEN DID YOU HAVE A DRINK CONTAINING ALCOHOL IN THE PAST YEAR?MONTHLY OR LESS (1 POINT) POINTS1 INTERPRETATIONNEGATIVE RECREATIONAL DRUG USE DRUG USE?NO CAFFEINE CAFFEINE USE?YES HIV / HEP-C SCREENING HIV TEST OFFERED TO PATIENT:YES DATE OFFERED:02/05/2020 TEST ACCEPTED:NO HEP-C TEST OFFERED TO PATIENT:YES DATE OFFERED:02/05/2020 REASON:PATIENT DECLINED TEST ACCEPTED:NO REASON:PATIENT DECLINED BROCHURE PROVIDED TO PATIENTNO LEARNING BARRIERS / SPECIAL NEEDS CHANGE FROM LAST VISIT?NO BARRIERS TO LEARNING?NO HEARING IMPAIRED?NO VISION IMPAIRED?YES :CORRECTIVE LENSES COGNITIVELY IMPAIRED?NO READINESS TO LEARN?YES LEARNING PREFERENCES?NO LEARNING CAPABILITIES PRESENT?YES EMOTIONAL BARRIERS?YES COMMENTS PANIC ATTACKS SPECIAL DEVICES?NO [employer] INFRASTRUCTURE CONSULTANT NEEDED?NO DOMESTIC VIOLENCE STATUS: NO HISTORY OF ABUSE MARITAL STATUS: . HOSPITALIZATION/MAJOR DIAGNOSTIC PROCEDURE SURGERY REVIEW OF SYSTEMS CONSTITUTIONAL: ANY RECENT FEVER NO . CHILLS NO . WEIGHT CHANGE OF UNKNOWN REASONS NO . GASTROENTEROLOGY: NEW UNEXPLAINABLE CHANGES IN BOWEL CONTROL NO . CONSTIPATION NO . GENITOURINARY: ANY NEW CHANGE IN BLADDER CONTROL? NO . NEUROLOGY: NEW ONSET DIZZINESS OR NEUROLOGICAL CHANGES NOT MENTIONED NO . NEW NUMBNESS OR PAIN PATTERNS NOT MENTIONED AND PERTINENT TO TODAY'S VISIT NO . CARDIOLOGY: NEW CHEST PRESSURE NO . PATIENT DENIES NO . RESPIRATORY: UNEXPLAINABLE COUGH NO . NEW SHORTNESS OF BREATH NO . VITAL SIGNS WT 199 LBS, HT 62 IN, BMI 36.39 INDEX, BP 139/70 MM HG, HR 82 /MIN, RR 18 /MIN, TEMP 98.6 F, OXYGEN SAT % 96%, SAFE IN ENV? (Y/N) YEST.[place] ROBINS. EXAMINATION GENERAL EXAMINATION: GENERALNO ACUTE DISTRESS, WELL NOURISHED AND HYDRATED. PSYCHAPPROPRIATE MOOD AND AFFECT . NECK:NO LYMPHADENOPATHY, SUPPLE. LUNGS:CLEAR TO AUSCULTATION BILATERALLY, NO WHEEZES, RHONCHI, RALES. HEART:NO MURMURS, REGULAR RATE AND RHYTHM. MUSCULOSKELETAL: MUSCLE STRENGTH TESTING 5/5 BILATERAL LOWER EXTREMITIES.. LUMBAR:SPECIFIC POINT TENDERNESS NOTED OVER LUMBAR FACETS RIGHT GREATER THAN LEFT. PAIN IS AGGRAVATED WITH EXTENSION OF SPINE. PAIN IS RELIEVED SOMEWHAT WITH FLEXION OF SPINE.. NEUROLOGIC EXAM:NORMAL SENSATION TO LIGHT TOUCH LOWER EXTREMITIES BILATERAL. DIAGNOSTIC TESTS REVIEWEDLUMBAR MRI 08/08/2020. 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 DISCUSSED DIAGNOSTIC TESTING FOR LUMBAR RADIOFREQUENCY PROCEDURE. FOLLOW-UP SCHEDULED IN 6 WEEKS. CONSIDER DIAGNOSTIC LUMBAR FACET BLOCK-BILATERAL IF PAIN HAS RETURNED. PROCEDURE CODES FA211 ESTABILISHED PATIENT [facility] CHARGE DISPOSITION & COMMUNICATION FOLLOW UP 6 WEEKS (REASON: LOW BACK PAIN/CONSIDER DIAGNOSTIC LUMBAR FACET BLOCK) ELECTRONICALLY SIGNED BY NINA AGUIRRE ON 04/02/2021 AT 01:10 PM EDT DISCLAIMER : THIS IS A VISIT SUMMARY EXTRACTED FROM THE [employer] CHART. IT IS NOT A COPY OF THE [employer] PROGRESS NOTE. GLEN
== END ==
LOC: M PAIN 13:00
PROVIDERS: ATTEND Nurse Practitioner Family
DX: M47.816 Spondylosis without myelopathy or radiculopathy, lumbar region (principal); G89.29 Other chronic pain; G43.909 Migraine, unspecified, not intractable, without status migrainosus; Z86.59 Personal history of other mental and behavioral disorders; Z98.84 Bariatric surgery status; Z87.891 Personal history of nicotine dependence; Z88.0 Allergy status to penicillin; Z88.1 Allergy status to other antibiotic agents; Z88.2 Allergy status to sulfonamides; Z79.899 Other long term (current) drug therapy

== ENCOUNTER 2021-04-25 10:50 | Emergency (ER) | payer OTHER ==
[~2021-04-25] VITALS: Ht 157.5 cm; Wt 89.1 kg
[2021-04-25] MEDS ORDERED: MORPHINE 4 MG/ML 1ML VIAL/SYRINGE (J2270) IV PRN (11:55)
[2021-04-25] MEDS ORDERED: PROMETHAZINE INJ 25 MG/ML VIAL (J2550) IV ONE (11:55)
[2021-04-25] MEDS ORDERED: NS 1,000 ML IV SCH (11:55)
[2021-04-25 12:41] LABS: BASO % 0.8 % (0.0-1.0); EOS # 0.1 10^3/uL (0.0-0.5); EOS % 2.4 % (0.0-3.0); HEMATOCRIT 39.7 % (36.0-47.0); HEMOGLOBIN 13.2 g/dl (12.0-15.5); LYMPH # 1.7 10^3/uL (1.5-5.0); LYMPH % 44.9 % (24.0-44.0); MEAN CORPUSCULAR HEMOGLOBIN 32.1 pg (27.0-33.0); MEAN CORPUSCULAR HGB CONC 33.2 g/dl (32.0-36.5); MEAN CORPUSCULAR VOLUME 96.6 fl (80.0-96.0); MONO # 0.3 10^3/uL (0.0-0.8); MONO % 6.8 % (2.0-8.0); NEUTROPHILS # 1.7 10^3/uL (1.5-8.5); NEUTROPHILS % 45.1 % (36.0-66.0); PLATELET COUNT, AUTOMATED 214 10^3/uL (150-450); RED BLOOD COUNT 4.11 10^6/uL (4.00-5.40); WHITE BLOOD COUNT 3.7 10^3/uL (4.0-10.0)
[2021-04-25 13:03] LABS: ALBUMIN 3.8 GM/DL (3.2-5.2); BILIRUBIN,DIRECT 0.1 MG/DL (0.0-0.2); BILIRUBIN,TOTAL 0.5 MG/DL (0.2-1.0); TOTAL PROTEIN 6.6 GM/DL (6.4-8.2)
[2021-04-25] MEDS ORDERED: ISOVUE-370 76% 100ML VIAL As Ordered ONE (13:05)
--- NOTE | 2021-04-25 13:37 | REP ---
INDICATION: L SIDE ABD PAIN. COMPARISON: Comparison CT studies are dated November 05, 2019 and April 04, 2019.. TECHNIQUE: Helical scanning was acquired and 4 mm axial images are re-formatted. Coronal and sagittal MPR images were generated and reviewed. The contrast enhancement dose is 100 mL of intravenous Isovue 370. 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 Bowel gas pattern is unremarkable. The lung bases are clear on axial CT images. The liver is normal in size homogeneous in texture. Spleen is unremarkable. The patient is status post gastric bypass and cholecystectomy. Small and large bowel loops are unremarkable in the abdomen and pelvis. There is moderate formed stool in the rectum. No uterine or ovarian mass or significant cyst is seen. Urinary bladder is unremarkable. There are 3 cysts affecting the left kidney. The largest of these is a mid to lower pole renal cortical cyst measuring 6.5 cm in in greatest diameter, previously 5.8 cm. There is a stable smaller cortical cyst in the lower pole medially measuring 2.2 cm. Lastly there are parapelvic cysts in the upper and lower pole of the left kidney which appears slightly more prominent. Kidneys enhance symmetrically. No hydronephrosis is appreciated. No renal calculus is seen. Normal caliber aorta is seen. No retroperitoneal or pelvic mass or adenopathy is seen. No abdominal wall defect is seen. No bony destructive lesion is appreciated. The appendix is surgically absent. IMPRESSION: Left renal cysts, the largest of which measures 6.5 cm in greatest diameter. This is slightly larger than on the prior CT study from November 05, 2019. Status post gastric bypass, cholecystectomy, and appendectomy. No other significant abnormality. <Electronically signed by Akira Paredes > 04/25/21 [id number]
[2021-04-25 14:03] LABS: GC DNA AMPLIFICATION NEGATIVE (NEGATIVE)
[2021-04-25] MEDS ORDERED: PROM25TA12 PO (14:10)
[2021-04-25 15:49] VITALS: BP 121/70
--- NOTE | 2021-04-26 06:37 | ED PDOC ---
Post-Departure Follow-Up dr brian starr faxed ct abd/p for fu Turner Lock MD Apr 26, 2021 06:37
== END 2021-04-25 15:50 | disposition home or self-care (01) ==
LOC: M ED 10:50
DX: R10.9 Unspecified abdominal pain (principal); R93.5 Abnormal findings on diagnostic imaging of other abdominal regions, including retroperitoneum; N28.1 Cyst of kidney, acquired; Z87.891 Personal history of nicotine dependence; Z88.0 Allergy status to penicillin; Z88.1 Allergy status to other antibiotic agents; Z88.2 Allergy status to sulfonamides; Z98.84 Bariatric surgery status
CPT/HCPCS: 74177; 80047; 80076; 81001; 83690; 84702; 85025; 87661; 96361; 96374; 99284; Q9967

== ENCOUNTER 2021-05-06 14:40 | Emergency (ER) | payer OTHER ==
[~2021-05-06] VITALS: Ht 157.5 cm; Wt 89.1 kg
[~2021-05-06 14:40] MED LIST changes: +PROM25TA12 PO
[2021-05-06] MEDS ORDERED: EPIN0.3I11 (14:51)
[2021-05-06] MEDS ORDERED: methylPREDNISolone 125MG 2ML VIAL IV ONE (14:55)
[2021-05-06] MEDS ORDERED: FAMOTIDINE INJ 20MG/2ML VIAL (S0028 PER 1) IVP ONE (14:55)
[2021-05-06] MEDS ORDERED: diphenhydrAMINE 50MG/ML VIAL (J1200) IV ONE (14:55)
[2021-05-06] MEDS ORDERED: NS 1,000 ML IV ONE (14:55)
[2021-05-06] MEDS ORDERED: PRED20TA PO (16:50)
[2021-05-06] MEDS ORDERED: EPIP0.3I2 IM (16:51)
[2021-05-06 17:11] VITALS: BP 111/62
== END 2021-05-06 17:18 | disposition home or self-care (01) ==
LOC: M ED 14:40
DX: T63.441A Toxic effect of venom of bees, accidental (unintentional), initial encounter (principal); R06.00 Dyspnea, unspecified; Z98.84 Bariatric surgery status; Z88.0 Allergy status to penicillin; Z88.1 Allergy status to other antibiotic agents; Z88.2 Allergy status to sulfonamides; Z79.899 Other long term (current) drug therapy
CPT/HCPCS: 93041; 94760; 96361; 96374; 96375; 99284; J1200; J2930

== ENCOUNTER → 2021-05-13 | Outpatient (CLI) | payer OTHER ==
[~2021-05-13] MED LIST changes: +EPIN0.3I11; +EPIP0.3I2 IM; +PRED20TA PO
== END ==
LOC: M PAIN 11:15
PROVIDERS: ATTEND Anesthesiology
DX: M47.816 Spondylosis without myelopathy or radiculopathy, lumbar region (principal); G89.29 Other chronic pain; G43.909 Migraine, unspecified, not intractable, without status migrainosus; Z87.891 Personal history of nicotine dependence; Z88.0 Allergy status to penicillin; Z88.1 Allergy status to other antibiotic agents; Z88.2 Allergy status to sulfonamides; Z79.899 Other long term (current) drug therapy

== ENCOUNTER → 2021-06-10 | Outpatient (CLI) | payer OTHER | LOC: M LABSMTC 09:51 | PROVIDERS: ATTEND Anesthesiology | DX: Z20.822 Contact with and (suspected) exposure to COVID-19 (principal) ==

== ENCOUNTER → 2021-06-15 | Outpatient (CLI) | payer OTHER ==
[~2021-06-15] MED LIST changes: +BUPIVACAINE HCL 0.25% 30ML VIAL As Ordered ONE; +ISOVUE-M 300 61% 15ML VIAL As Ordered ONE; +LIDOCAINE 1% SDV 30ML VIAL As Ordered ONE
== END ==
LOC: M PAIN 11:20
PROVIDERS: ATTEND Anesthesiology
DX: M47.816 Spondylosis without myelopathy or radiculopathy, lumbar region (principal); M47.817 Spondylosis without myelopathy or radiculopathy, lumbosacral region; G43.909 Migraine, unspecified, not intractable, without status migrainosus; Z87.891 Personal history of nicotine dependence; Z88.0 Allergy status to penicillin; Z88.1 Allergy status to other antibiotic agents; Z88.2 Allergy status to sulfonamides; Z79.899 Other long term (current) drug therapy
CPT/HCPCS: 64493; 64494; Q9967

== ENCOUNTER → 2021-06-17 | Outpatient (CLI) | payer OTHER ==
[~2021-06-17] MED LIST changes: -BUPIVACAINE HCL 0.25% 30ML VIAL As Ordered ONE; -ISOVUE-M 300 61% 15ML VIAL As Ordered ONE; -LIDOCAINE 1% SDV 30ML VIAL As Ordered ONE
== END ==
LOC: M PAIN 09:30
PROVIDERS: ATTEND Anesthesiology
DX: M47.816 Spondylosis without myelopathy or radiculopathy, lumbar region (principal); G89.29 Other chronic pain; G43.909 Migraine, unspecified, not intractable, without status migrainosus; Z87.891 Personal history of nicotine dependence; Z88.0 Allergy status to penicillin; Z88.1 Allergy status to other antibiotic agents; Z88.2 Allergy status to sulfonamides; Z79.899 Other long term (current) drug therapy

== ENCOUNTER → 2021-07-27 | Outpatient (CLI) | payer BC ==
--- NOTE | 2021-07-27 16:17 | REPMRS ---
Patient History The patient states she had a clinical breast exam in July 2021. No known family history of cancer. Reductions of both breasts, 2006. Taking hormonal contraceptives for 25 years. Patient states no breast complaints today. Patient has signed MRS History Sheet. Digital Woman Screen Mammo: July 27, 2021 - Exam #: [id number] Bilateral CC and MLO view(s) were taken. Technologist: Monica Dominguez, Technologist Prior study comparison: April 30, 2020, bilateral digital woman screen mammo performed at [facility]. April 11, 2019, bilateral digital mammo screening bilat, performed at [facility]. FINDINGS: There are scattered fibroglandular densities. Screening. Digital screening (2D) mammography was performed bilaterally in the CC and MLO projections. Additionally, breast tomosynthesis (3D mammography) was performed bilaterally in the CC and MLO projections. Todays exam was compared to the prior exam/exams. By history, the patient has no complaints of a palpable breast abnormality or other significant breast complaints. The Volpara volumetric breast density category is B, there are scattered areas of fibroglandular densities. The breasts are unchanged in size and shape. There are no jason-soft tissue densities or spiculated masses. There is no internal architectural distortion. There are no suspicious jason-calcific clusters. Skin thickening or nipple retraction is not present. IMPRESSION: BI-RADS Category 2- Benign Findings. There is no evidence of malignant alteration of the breasts. Followup examination recommended in one year. The lifetime Tyrer-Cuzick score is 15.1% This mammogram was read with the assistance of [employer],an FDA approved computer aided detection system for mammography. Negative x-ray reports should not delay surgical consultation if a dominant or clinically suspicious mass is present. Not all breast cancers can be identified by mammography. Therefore, we recommend that you continue to perform regular breast self-examination and physical examination and then promptly contact your physician of any concerns or changes. Adenosis and dense breasts may obscure an underlying neoplasm. No significant changes when compared with prior studies. Assessment: BI-RADS/ACR category 2 mammogram. Benign Findings. Recommendation Routine screening mammogram of both breasts in 1 year. Electronically Signed By: Kam Patel MD 07/27/21 [id number]
== END ==
LOC: M WHC 14:11
PROVIDERS: ATTEND Advanced Practice Midwife
DX: Z12.31 Encounter for screening mammogram for malignant neoplasm of breast (principal)

== ENCOUNTER → 2021-07-27 | Outpatient (REF) | payer BC | LOC: M PLALAB 14:43 | PROVIDERS: ATTEND Advanced Practice Midwife | DX: Z12.4 Encounter for screening for malignant neoplasm of cervix (principal) ==

== ENCOUNTER → 2021-07-27 | Outpatient (REF) | payer BC | LOC: M SFHCWAGY 19:26 | PROVIDERS: ATTEND Advanced Practice Midwife | DX: Z12.4 Encounter for screening for malignant neoplasm of cervix (principal) | CPT/HCPCS: 87624; G0123 ==

== ENCOUNTER → 2021-08-10 | Outpatient (CLI) | payer BC ==
--- NOTE | 2021-08-11 14:09 | REP ---
INDICATION: MENORRHAGIA. COMPARISON: CT 04/25/2021. TECHNIQUE: Transabdominal and transvaginal scanning performed. FINDINGS: Uterine dimensions are 9.4 x 3.8 x 5.5 cm. Endometrial echo is 11 mm in AP dimension and centrally placed. The bladder measures 4.7 x 5.6 x 6.7cm. The right ovary has dimensions of 4.3 x 2.7 x 3.3 cm. It's Doppler flow is normal with a resistive index of 0.61. The left ovary dimensions are 3.4 x 2.1 x 3.0 cm. It's Doppler flow was normal with resistive index of 0.59. A cystic structure in the right ovary measures 2.8 x 2.3 x 1.9 cm likely representing a dominant follicle. A complex cystic structure in the left ovary measures 2.9 x 2.0 x 1.2 cm likely representing hemorrhagic dominant follicle. No free fluid is seen in the cul-de-sac. IMPRESSION: Small cystic structure is seen in each ovary as discussed in detail above, likely representing dominant follicles. <Electronically signed by Stewart Bradford > 08/11/21 [id number]
== END ==
LOC: M WHC 12:32
PROVIDERS: ATTEND Advanced Practice Midwife
DX: N92.0 Excessive and frequent menstruation with regular cycle (principal)

== ENCOUNTER → 2021-08-18 | Outpatient (CLI) | payer BC | LOC: M PAIN 10:45 | PROVIDERS: ATTEND Anesthesiology | DX: M47.816 Spondylosis without myelopathy or radiculopathy, lumbar region (principal); G89.29 Other chronic pain; Z87.891 Personal history of nicotine dependence; Z79.899 Other long term (current) drug therapy ==

== ENCOUNTER → 2021-09-11 | Outpatient (REF) | LOC: M LABSMTC 12:36 | PROVIDERS: ATTEND Family Medicine | DX: Z11.52 Encounter for screening for COVID-19 (principal); Z20.822 Contact with and (suspected) exposure to COVID-19 ==

== ENCOUNTER → 2021-10-14 | Outpatient (CLI) | payer BC | LOC: M LABSMTC 11:46 | PROVIDERS: ATTEND Anesthesiology | DX: Z01.818 Encounter for other preprocedural examination (principal); Z11.52 Encounter for screening for COVID-19 ==

== ENCOUNTER → 2021-12-02 | Outpatient (CLI) | payer BC ==
[~2021-12-02] MED LIST changes: +ERGO500029; +ESSETAB4 PO; +FLON1SPR NARES; +IMIT100T PO; +MYRB25TA; +OMEP40CA5; +ONDA4TAB6; +PRUC2TAB; +VITA100018 PO; +[UNRECOGNIZED DRUG - CODE] PO
[2021-12-02 17:19] LABS: ALBUMIN 3.7 GM/DL (3.2-5.2); ALT/SGPT 26 U/L (12-78); BILIRUBIN,TOTAL 0.2 MG/DL (0.2-1.0); BLOOD UREA NITROGEN 14 MG/DL (7-18); CALCIUM LEVEL 8.9 MG/DL (8.5-10.1); CARBON DIOXIDE LEVEL 27 MEQ/L (21-32); CHLORIDE LEVEL 117 MEQ/L (98-107); GLOMERULAR FILTRATION RATE > 60.0 (>58); GLUCOSE, FASTING 86 MG/DL (70-100); POTASSIUM SERUM 4.1 MEQ/L (3.5-5.1); RHEUMATOID FACTOR QUANT < 10.0 IU/ML (<15.0); SODIUM LEVEL 145 MEQ/L (136-145); TOTAL PROTEIN 6.3 GM/DL (6.4-8.2)
[2021-12-02 17:28] LABS: TOTAL 25(OH) VITAMIN D 31.9 NG/ML (30.0-100.0); VITAMIN B12 LEVEL > 2000 PG/ML
[2021-12-02 17:52] LABS: INR 0.91; PROTHROMBIN TIME 12.7 SECONDS (12.7-14.5)
[2021-12-02 17:53] LABS: PARTIAL THROMBOPLASTIN TIME 26.4 SECONDS (25.9-37.0)
== END ==
LOC: M PLALAB 12:41
PROVIDERS: ATTEND Psychiatry & Neurology Neurology
DX: R51.9 Headache, unspecified (principal)

== ENCOUNTER → 2021-12-09 | Outpatient (CLI) | payer BC | LOC: M LABSMTC 10:07 | PROVIDERS: ATTEND Anesthesiology | DX: Z01.812 Encounter for preprocedural laboratory examination (principal); Z20.822 Contact with and (suspected) exposure to COVID-19 ==

== ENCOUNTER 2021-12-14 08:05 | Day surgery (SDC) | payer BC ==
[~2021-12-14] VITALS: Ht 159 cm; Wt 92.6 kg
[~2021-12-14 08:05] MED LIST changes: +BUPIVACAINE HCL 0.25% 30ML VIAL As Ordered ONE; +LIDOCAINE 1% MDV 20ML VIAL SQ PRN; +LR 1,000 ML IV ONE
[2021-12-14 08:36] LABS: HEMATOCRIT 37.8 % (36.0-47.0); HEMOGLOBIN 12.6 g/dl (12.0-15.5); MEAN CORPUSCULAR HEMOGLOBIN 31.7 pg (27.0-33.0); MEAN CORPUSCULAR HGB CONC 33.3 g/dl (32.0-36.5); MEAN CORPUSCULAR VOLUME 95.2 fl (80.0-96.0); PLATELET COUNT, AUTOMATED 203 10^3/uL (150-450); RED BLOOD COUNT 3.97 10^6/uL (4.00-5.40)
[2021-12-14] MEDS ORDERED: fentaNYL 250 MCG/5 ML INJECTION As Ordered ONE (08:47)
[2021-12-14] MEDS ORDERED: MIDAZOLAM INJ 2MG/2ML VIAL (J2250 PER 1MG) As Ordered ONE (08:48)
[2021-12-14] MEDS ORDERED: propofoL 200 MG/20 ML VIAL As Ordered ONE (08:48)
[2021-12-14] MEDS ORDERED: ROCURONIUM BROMIDE 50 MG/5 ML VIAL As Ordered ONE ×2 (08:48→10:51)
[2021-12-14] MEDS ORDERED: dexameTHASONE 4 MG/ML 1ML VIAL (J1100 PER 1MG) As Ordered ONE (08:48)
[2021-12-14] MEDS ORDERED: ACETAMINOPHEN 1000MG 100ML IV BTL (OFIRMEV) (J0131 PER 10MG) As Ordered ONE (08:48)
[2021-12-14] MEDS ORDERED: LIDOCAINE 2% 100MG/5ML SDV (FOR ANES.) As Ordered ONE (08:49)
[2021-12-14] MEDS ORDERED: ONDANSETRON 4MG/2ML VIAL As Ordered ONE (08:52)
[2021-12-14] MEDS ORDERED: CLINDAMYCIN 900 MG in IV 1 EA IV ONE (09:35)
[2021-12-14] MEDS ORDERED: AZTREONAM 2 GM in D5W MINI-BAG PLUS 100 ML IV ONE (09:35)
[2021-12-14] MEDS ORDERED: SCOPOLAMINE 1MG TRANSDERMAL PATCH TOP ONE (09:50)
[2021-12-14] MEDS ORDERED: diphenhydrAMINE 50MG/ML VIAL (J1200) As Ordered ONE (10:09)
[2021-12-14] MEDS ORDERED: ePHEDrine SULFATE 25 MG/5 ML(5MG/ML) SYRINGE As Ordered ONE (10:38)
[2021-12-14] MEDS ORDERED: HYDROmorphone HCL 2MG/ML 1ML VIAL As Ordered ONE (10:55)
[2021-12-14] MEDS ORDERED: SUGAMMADEX SODIUM 500 MG/5 ML VIAL (BRIDION) As Ordered ONE (11:12)
[2021-12-14] MEDS ORDERED: KETOROLAC 60MG 2ML VIAL As Ordered ONE (11:13)
[2021-12-14] MEDS ORDERED: LR 1,000 ML IV SCH (12:15)
[2021-12-14] MEDS ORDERED: fentaNYL 100 MCG/2 ML INJECTION IV PRN (12:15)
[2021-12-14] MEDS ORDERED: ONDANSETRON 4MG/2ML VIAL IV PRN (12:15)
[2021-12-14] MEDS ORDERED: MORPHINE 4 MG/ML 1ML VIAL/SYRINGE (J2270) IV PRN (12:15)
[2021-12-14] MEDS ORDERED: oxyCODONE 5MG TAB PO PRN (12:15)
[2021-12-14 14:05] VITALS: BP 115/58
== END 2021-12-14 14:23 | disposition home or self-care (01) ==
LOC: M SDC 08:05
PROVIDERS: ATTEND Obstetrics & Gynecology
DX: N93.9 Abnormal uterine and vaginal bleeding, unspecified (principal); K58.8 Other irritable bowel syndrome; K21.9 Gastro-esophageal reflux disease without esophagitis; G43.909 Migraine, unspecified, not intractable, without status migrainosus; Z79.899 Other long term (current) drug therapy; Z91.030 Bee allergy status; Z88.2 Allergy status to sulfonamides; Z88.0 Allergy status to penicillin
CPT/HCPCS: 36415; 58571; 81025; 85027; 86850; 86900; 86901; 88307; J0131; J1100; J1170; J1200; J1885; J2250; J2405; J3010; S0073; S2900

== ENCOUNTER → 2022-01-13 | Outpatient (CLI) | payer BC ==
[~2022-01-13] MED LIST changes: -BUPIVACAINE HCL 0.25% 30ML VIAL As Ordered ONE; -LIDOCAINE 1% MDV 20ML VIAL SQ PRN; -LR 1,000 ML IV ONE
== END ==
LOC: M LABSMTC 09:56
PROVIDERS: ATTEND Anesthesiology
DX: Z11.52 Encounter for screening for COVID-19 (principal); Z20.822 Contact with and (suspected) exposure to COVID-19

== ENCOUNTER → 2022-02-22 | Outpatient (CLI) | payer BC | LOC: M LABSMTC 09:37 | PROVIDERS: ATTEND Anesthesiology | DX: Z01.818 Encounter for other preprocedural examination (principal); Z11.52 Encounter for screening for COVID-19 ==

== ENCOUNTER → 2022-02-26 | Outpatient (CLI) | payer BC ==
[~2022-02-26] MED LIST changes: +BUPIVACAINE HCL 0.25% 30ML VIAL As Ordered ONE; +ISOVUE-M 300 61% 15ML VIAL As Ordered ONE; +LIDO1PAD13 TOP; +LIDOCAINE 1% SDV 30ML VIAL As Ordered ONE; +PLEC3TAB PO; +VITATAB64 PO; +[UNRECOGNIZED DRUG - OTHER] PO
[2022-02-26 16:32] VITALS: BP 142/76
== END ==
LOC: M IRPRO 12:12
PROVIDERS: ATTEND Anesthesiology
DX: M47.816 Spondylosis without myelopathy or radiculopathy, lumbar region (principal); G89.29 Other chronic pain; G43.909 Migraine, unspecified, not intractable, without status migrainosus; Z88.0 Allergy status to penicillin; Z88.1 Allergy status to other antibiotic agents; Z88.2 Allergy status to sulfonamides; Z88.8 Allergy status to other drugs, medicaments and biological substances; Z98.84 Bariatric surgery status
CPT/HCPCS: 64493; 64494; Q9967

== ENCOUNTER → 2022-03-03 | Outpatient (CLI) | payer BC ==
[~2022-03-03] MED LIST changes: -BUPIVACAINE HCL 0.25% 30ML VIAL As Ordered ONE; -ISOVUE-M 300 61% 15ML VIAL As Ordered ONE; -LIDOCAINE 1% SDV 30ML VIAL As Ordered ONE
== END ==
LOC: M PAIN 09:00
PROVIDERS: ATTEND Anesthesiology
DX: G89.4 Chronic pain syndrome (principal); M47.816 Spondylosis without myelopathy or radiculopathy, lumbar region; G43.909 Migraine, unspecified, not intractable, without status migrainosus; Z86.59 Personal history of other mental and behavioral disorders; Z98.84 Bariatric surgery status; Z87.891 Personal history of nicotine dependence; Z88.0 Allergy status to penicillin; Z88.1 Allergy status to other antibiotic agents; Z88.2 Allergy status to sulfonamides; Z79.899 Other long term (current) drug therapy

== ENCOUNTER 2022-04-03 09:48 | Emergency (ER) | payer BC, OTHER ==
[~2022-04-03] VITALS: Ht 157.5 cm; Wt 91.7 kg
[2022-04-03 09:49] VITALS: BP 123/84
[2022-04-03 10:49] LABS: BASO % 1.1 % (0.0-1.0); EOS # 0.1 10^3/uL (0.0-0.5); EOS % 2.2 % (0.0-3.0); HEMATOCRIT 40.1 % (36.0-47.0); HEMOGLOBIN 13.4 g/dl (12.0-15.5); LYMPH # 1.7 10^3/uL (1.5-5.0); LYMPH % 45.7 % (24.0-44.0); MEAN CORPUSCULAR HEMOGLOBIN 32.4 pg (27.0-33.0); MEAN CORPUSCULAR HGB CONC 33.4 g/dl (32.0-36.5); MEAN CORPUSCULAR VOLUME 96.9 fl (80.0-96.0); MONO # 0.2 10^3/uL (0.0-0.8); MONO % 6.3 % (2.0-8.0); NEUTROPHILS # 1.7 10^3/uL (1.5-8.5); NEUTROPHILS % 44.7 % (36.0-66.0); PLATELET COUNT, AUTOMATED 258 10^3/uL (150-450); RED BLOOD COUNT 4.14 10^6/uL (4.00-5.40); WHITE BLOOD COUNT 3.7 10^3/uL (4.0-10.0)
[2022-04-03 11:13] LABS: ALBUMIN 4.1 GM/DL (3.2-5.2); ALT/SGPT 15 U/L (12-78); BILIRUBIN,TOTAL 0.3 MG/DL (0.2-1.0); BLOOD UREA NITROGEN 20 MG/DL (7-18); CARBON DIOXIDE LEVEL 25 MEQ/L (21-32); CHLORIDE LEVEL 112 MEQ/L (98-107); CREATININE FOR GFR 0.77 MG/DL (0.55-1.30); GLOMERULAR FILTRATION RATE > 60.0 (>58); GLUCOSE, FASTING 88 MG/DL (70-100); POTASSIUM SERUM 4.6 MEQ/L (3.5-5.1); SODIUM LEVEL 141 MEQ/L (136-145); TOTAL PROTEIN 6.3 GM/DL (6.4-8.2)
[2022-04-03 11:31] LABS: HEPATITIS B SURFACE ANTIBODY NEGATIVE (POSITIVE)
[2022-04-03 11:42] LABS: HEPATITIS B SURFACE ANTIGEN NEGATIVE (NEGATIVE)
[2022-04-03 12:10] LABS: HEPATITIS C VIRUS ABY INDEX 0.1 INDEX (<0.8)
[2022-04-03 12:11] LABS: HIV SCREEN CENTAUR EXPOSED NEGATIVE (NEGATIVE)
[2022-04-03] MEDS ORDERED: HEPATITIS B VACCINE 20MCG/ML 1ML SYRINGE (ADULT DOSE) IM.IMMUN ONE (13:20)
[2022-04-03 14:08] LABS: HCG, SERUM QUALITATIVE NEGATIVE (NEGATIVE)
== END 2022-04-03 10:43 | disposition home or self-care (01) ==
LOC: M ED 09:48
DX: Z77.21 Contact with and (suspected) exposure to potentially hazardous body fluids (principal); G43.909 Migraine, unspecified, not intractable, without status migrainosus; K21.9 Gastro-esophageal reflux disease without esophagitis; D64.9 Anemia, unspecified; Z87.891 Personal history of nicotine dependence; Z88.2 Allergy status to sulfonamides; Z88.0 Allergy status to penicillin; Z88.1 Allergy status to other antibiotic agents; Z79.899 Other long term (current) drug therapy

== ENCOUNTER → 2022-05-10 | Outpatient (CLI) | payer BC | LOC: M PAIN 11:00 | PROVIDERS: ATTEND Anesthesiology | DX: M47.816 Spondylosis without myelopathy or radiculopathy, lumbar region (principal); G89.29 Other chronic pain; G43.909 Migraine, unspecified, not intractable, without status migrainosus; K21.9 Gastro-esophageal reflux disease without esophagitis; Z86.59 Personal history of other mental and behavioral disorders; Z87.891 Personal history of nicotine dependence; Z88.0 Allergy status to penicillin; Z88.1 Allergy status to other antibiotic agents; Z88.2 Allergy status to sulfonamides; Z79.899 Other long term (current) drug therapy ==

== ENCOUNTER → 2022-06-15 | Outpatient (CLI) | payer BC | LOC: M WUC 09:32 | PROVIDERS: ATTEND Student in an Organized Health Care Education/Training Program | DX: M79.662 Pain in left lower leg (principal) ==

== ENCOUNTER → 2022-07-28 | Outpatient (CLI) | payer BC | LOC: M WHC 14:26 | PROVIDERS: ATTEND Obstetrics & Gynecology | DX: Z12.31 Encounter for screening mammogram for malignant neoplasm of breast (principal); R92.8 Other abnormal and inconclusive findings on diagnostic imaging of breast ==

== ENCOUNTER → 2022-08-18 | Outpatient (CLI) | payer BC | LOC: M WHC 09:00 | PROVIDERS: ATTEND Obstetrics & Gynecology | DX: R92.8 Other abnormal and inconclusive findings on diagnostic imaging of breast (principal) | CPT/HCPCS: 77065; G0279 ==

== ENCOUNTER → 2022-09-16 | Outpatient (CLI) | payer BC ==
[2022-09-16 12:59] LABS: EOS # 0.1 10^3/uL (0.0-0.5); EOS % 1.9 % (0.0-3.0); HEMATOCRIT 40.4 % (36.0-47.0); HEMOGLOBIN 13.2 g/dl (12.0-15.5); LYMPH # 1.8 10^3/uL (1.5-5.0); LYMPH % 43.5 % (24.0-44.0); MEAN CORPUSCULAR HGB CONC 32.7 g/dl (32.0-36.5); MEAN CORPUSCULAR VOLUME 97.8 fl (80.0-96.0); MONO # 0.2 10^3/uL (0.0-0.8); MONO % 5.2 % (2.0-8.0); NEUTROPHILS % 48.2 % (36.0-66.0); PLATELET COUNT, AUTOMATED 236 10^3/uL (150-450); RED BLOOD COUNT 4.13 10^6/uL (4.00-5.40); WHITE BLOOD COUNT 4.2 10^3/uL (4.0-10.0)
[2022-09-16 14:16] LABS: ALBUMIN 3.7 G/DL (3.2-5.2); ALKALINE PHOSPHATASE 54 U/L (46-116); ALT/SGPT 16 U/L (7.0-40); AST/SGOT 16 U/L (<34); BILIRUBIN,TOTAL 0.4 MG/DL (0.3-1.2); BLOOD UREA NITROGEN 15 MG/DL (9-23); CALCIUM LEVEL 8.9 MG/DL (8.5-10.1); CARBON DIOXIDE LEVEL 26 MMOL/L (20-31); CHLORIDE LEVEL 106 MMOL/L (98-107); CHOLESTEROL LEVEL 159 MG/DL (<200); CHOLESTEROL RISK RATIO 1.99 (<5); CREATININE FOR GFR 0.74 MG/DL (0.55-1.30); GLOMERULAR FILTRATION RATE > 60.0 (>58); GLUCOSE, FASTING 85 MG/DL (60-100); HDL CHOLESTEROL 79.6 MG/DL (>40); LDL CHOLESTEROL 62.6 MG/DL (<100); NON-HDL-C 79 MG/DL; POTASSIUM SERUM 4.4 MMOL/L (3.5-5.1); SODIUM LEVEL 138 MMOL/L (136-145); TOTAL PROTEIN 6.2 G/DL (5.7-8.2); TRIGLYCERIDES LEVEL 84 MG/DL (<150)
[2022-09-16 14:20] LABS: THYROID STIMULATING HORMONE 0.689 uIU/ML (0.55-4.78)
[2022-09-16 14:26] LABS: HEMOGLOBIN A1c 4.7 % (4.0-6.0)
== END ==
LOC: M LAB 12:32
PROVIDERS: ATTEND Family Medicine
DX: E16.2 Hypoglycemia, unspecified (principal); E53.9 Vitamin B deficiency, unspecified; F41.9 Anxiety disorder, unspecified; K21.9 Gastro-esophageal reflux disease without esophagitis

== ENCOUNTER 2022-09-22 10:54 | Emergency (ER) | payer OTHER, BC ==
[~2022-09-22] VITALS: Ht 157.5 cm; Wt 85.0 kg
[2022-09-22 10:56] VITALS: BP 142/85
[2022-09-22 11:54] LABS: BASO % 0.9 % (0.0-1.0); EOS # 0.1 10^3/uL (0.0-0.5); EOS % 2.6 % (0.0-3.0); HEMATOCRIT 39.1 % (36.0-47.0); HEMOGLOBIN 12.7 g/dl (12.0-15.5); LYMPH # 1.7 10^3/uL (1.5-5.0); LYMPH % 49.3 % (24.0-44.0); MEAN CORPUSCULAR HEMOGLOBIN 31.8 pg (27.0-33.0); MEAN CORPUSCULAR HGB CONC 32.5 g/dl (32.0-36.5); MONO # 0.2 10^3/uL (0.0-0.8); NEUTROPHILS # 1.4 10^3/uL (1.5-8.5); NEUTROPHILS % 40.9 % (36.0-66.0); PLATELET COUNT, AUTOMATED 229 10^3/uL (150-450); RED BLOOD COUNT 3.99 10^6/uL (4.00-5.40); WHITE BLOOD COUNT 3.5 10^3/uL (4.0-10.0)
[2022-09-22 12:25] LABS: ALBUMIN 3.8 G/DL (3.2-5.2); ALKALINE PHOSPHATASE 52 U/L (46-116); ALT/SGPT 14 U/L (7.0-40); AST/SGOT 14 U/L (<34); BILIRUBIN,TOTAL 0.2 MG/DL (0.3-1.2); BLOOD UREA NITROGEN 17 MG/DL (9-23); CALCIUM LEVEL 9.1 MG/DL (8.5-10.1); CARBON DIOXIDE LEVEL 23 MMOL/L (20-31); CHLORIDE LEVEL 111 MMOL/L (98-107); CREATININE FOR GFR 0.66 MG/DL (0.55-1.30); GLOMERULAR FILTRATION RATE > 60.0 (>58); GLUCOSE, FASTING 92 MG/DL (60-100); POTASSIUM SERUM 4.5 MMOL/L (3.5-5.1); SODIUM LEVEL 143 MMOL/L (136-145); TOTAL PROTEIN 6.2 G/DL (5.7-8.2)
[2022-09-22 12:27] LABS: HEPATITIS B SURFACE ANTIBODY NEGATIVE (POSITIVE)
[2022-09-22 12:39] LABS: HEPATITIS B SURFACE ANTIGEN NEGATIVE (NEGATIVE)
[2022-09-22 12:51] LABS: HIV SCREEN CENTAUR EXPOSED NEGATIVE (NEGATIVE)
[2022-09-22 13:00] LABS: HEPATITIS B CORE ANTIBODY IGM NEGATIVE (NEGATIVE)
== END 2022-09-22 14:36 | disposition home or self-care (01) ==
LOC: M ED 10:54
DX: S51.831A Puncture wound without foreign body of right forearm, initial encounter (principal); Z77.21 Contact with and (suspected) exposure to potentially hazardous body fluids; G43.909 Migraine, unspecified, not intractable, without status migrainosus; K21.9 Gastro-esophageal reflux disease without esophagitis; G40.89 Other seizures; F17.200 Nicotine dependence, unspecified, uncomplicated; F10.10 Alcohol abuse, uncomplicated; Y92.9 Unspecified place or not applicable; Y93.9 Activity, unspecified; Y99.0 Civilian activity done for income or pay; Z88.0 Allergy status to penicillin; Z88.2 Allergy status to sulfonamides; Z88.1 Allergy status to other antibiotic agents; Z79.82 Long term (current) use of aspirin; Z79.811 Long term (current) use of aromatase inhibitors; Z79.899 Other long term (current) drug therapy

== ENCOUNTER → 2022-10-06 | Outpatient (REF) ==
[2022-10-06 14:01] LABS: RSV AMPLIFICATION NEGATIVE (NEGATIVE)
== END ==
LOC: M LABSMTC 10:04
PROVIDERS: ATTEND Family Medicine
DX: Z20.818 Contact with and (suspected) exposure to other bacterial communicable diseases (principal)

== ENCOUNTER → 2022-10-13 | Outpatient (CLI) | payer BC | LOC: M PAIN 14:00 | PROVIDERS: ATTEND Anesthesiology | DX: M47.816 Spondylosis without myelopathy or radiculopathy, lumbar region (principal); G89.29 Other chronic pain; G43.909 Migraine, unspecified, not intractable, without status migrainosus; K21.9 Gastro-esophageal reflux disease without esophagitis; Z86.59 Personal history of other mental and behavioral disorders; Z98.84 Bariatric surgery status; Z87.891 Personal history of nicotine dependence; Z88.0 Allergy status to penicillin; Z88.1 Allergy status to other antibiotic agents; Z88.2 Allergy status to sulfonamides; Z79.899 Other long term (current) drug therapy ==

== ENCOUNTER → 2022-10-21 | Outpatient (CLI) | payer BC | LOC: M LABSMTC 09:28 | PROVIDERS: ATTEND Nurse Practitioner Critical Care Medicine | DX: Z20.828 Contact with and (suspected) exposure to other viral communicable diseases (principal) ==

== ENCOUNTER → 2023-02-17 | Outpatient (CLI) | payer BC ==
[2023-02-17 11:56] LABS: HEMOGLOBIN 12.8 g/dl (12.0-15.5); MEAN CORPUSCULAR HEMOGLOBIN 32.2 pg (27.0-33.0); MEAN CORPUSCULAR HGB CONC 32.8 g/dl (32.0-36.5); PLATELET COUNT, AUTOMATED 208 10^3/uL (150-450); RED BLOOD COUNT 3.98 10^6/uL (4.00-5.40); WHITE BLOOD COUNT 3.2 10^3/uL (4.0-10.0)
[2023-02-17 12:14] LABS: BLOOD UREA NITROGEN 16 MG/DL (9-23); CALCIUM LEVEL 8.6 MG/DL (8.5-10.1); CARBON DIOXIDE LEVEL 25 MMOL/L (20-31); CHLORIDE LEVEL 109 MMOL/L (98-107); CREATININE FOR GFR 0.72 MG/DL (0.55-1.30); GLOMERULAR FILTRATION RATE > 60.0 (>58); GLUCOSE, FASTING 89 MG/DL (60-100); POTASSIUM SERUM 4.6 MMOL/L (3.5-5.1); SODIUM LEVEL 139 MMOL/L (136-145)
== END ==
LOC: M LAB 10:50
PROVIDERS: ATTEND Family Medicine
DX: Z01.818 Encounter for other preprocedural examination (principal)

== ENCOUNTER → 2023-03-30 | Outpatient (CLI) | payer BC ==
[~2023-03-30] MED LIST changes: +ACET-683 PO; +ACET-907 PO; +CELE40TA PO; +DOCU250C7 PO; +EPIN0.3I11 IM; +ERGO500029 PO; +FLINCHW12 PO; +FREM225A SC; +LIDO1ADH20 TOP; +METH-1164 PO; +MYRB50TA PO; +OMEP40CA5 PO; +ONDA4TAB6 PO; +OXYC-517 PO; +PHEN-239 PO; +PRUC2TAB PO; +SUCR1TA PO; +SUCR1TAB56 PO; +SUMA100T2 PO
== END ==
LOC: M PAIN 15:45
PROVIDERS: ATTEND Anesthesiology
DX: M43.06 Spondylolysis, lumbar region (principal); G89.29 Other chronic pain; G43.909 Migraine, unspecified, not intractable, without status migrainosus; K21.9 Gastro-esophageal reflux disease without esophagitis; Z98.84 Bariatric surgery status; Z87.891 Personal history of nicotine dependence; Z88.0 Allergy status to penicillin; Z88.1 Allergy status to other antibiotic agents; Z88.2 Allergy status to sulfonamides; Z79.899 Other long term (current) drug therapy

== ENCOUNTER → 2023-06-15 | Outpatient (CLI) | payer BC ==
[~2023-06-15] MED LIST changes: -AMIT25TA17; +AMIT25TA19
[2023-06-15 10:18] LABS: EOS # 0.1 10^3/uL (0.0-0.5); EOS % 3.1 % (0.0-3.0); HEMATOCRIT 38.6 % (36.0-47.0); HEMOGLOBIN 12.5 g/dl (12.0-15.5); LYMPH # 1.9 10^3/uL (1.5-5.0); LYMPH % 47.9 % (24.0-44.0); MEAN CORPUSCULAR HEMOGLOBIN 30.6 pg (27.0-33.0); MEAN CORPUSCULAR HGB CONC 32.4 g/dl (32.0-36.5); MEAN CORPUSCULAR VOLUME 94.6 fl (80.0-96.0); MONO # 0.3 10^3/uL (0.0-0.8); MONO % 7.3 % (2.0-8.0); NEUTROPHILS # 1.6 10^3/uL (1.5-8.5); NEUTROPHILS % 40.4 % (36.0-66.0); PLATELET COUNT, AUTOMATED 216 10^3/uL (150-450); RED BLOOD COUNT 4.08 10^6/uL (4.00-5.40); WHITE BLOOD COUNT 3.9 10^3/uL (4.0-10.0)
[2023-06-15 10:51] LABS: ALBUMIN 3.6 G/DL (3.2-5.2); ALKALINE PHOSPHATASE 56 U/L (46-116); ALT/SGPT 19 U/L (7.0-40); AST/SGOT 9 U/L (<34); BILIRUBIN,TOTAL 0.4 MG/DL (0.3-1.2); BLOOD UREA NITROGEN 19 MG/DL (9-23); CALCIUM LEVEL 8.4 MG/DL (8.5-10.1); CARBON DIOXIDE LEVEL 26 MMOL/L (20-31); CHLORIDE LEVEL 108 MMOL/L (98-107); CREATININE FOR GFR 0.71 MG/DL (0.55-1.30); GLOMERULAR FILTRATION RATE > 60.0 (>58); GLUCOSE, FASTING 91 MG/DL (60-100); POTASSIUM SERUM 3.9 MMOL/L (3.5-5.1); SODIUM LEVEL 141 MMOL/L (136-145); TOTAL PROTEIN 5.9 G/DL (5.7-8.2)
== END ==
LOC: M LAB 09:46
PROVIDERS: ATTEND Psychiatry & Neurology Neurology
DX: R51.9 Headache, unspecified (principal)

== ENCOUNTER → 2023-08-12 | Outpatient (CLI) | payer BC ==
[2023-08-12 15:12] LABS: EOS # 0.1 10^3/uL (0.0-0.5); EOS % 2.5 % (0.0-3.0); HEMATOCRIT 38.4 % (36.0-47.0); HEMOGLOBIN 12.9 g/dl (12.0-15.5); LYMPH # 1.4 10^3/uL (1.5-5.0); LYMPH % 35.4 % (24.0-44.0); MEAN CORPUSCULAR HEMOGLOBIN 31.1 pg (27.0-33.0); MEAN CORPUSCULAR HGB CONC 33.6 g/dl (32.0-36.5); MEAN CORPUSCULAR VOLUME 92.5 fl (80.0-96.0); MONO # 0.3 10^3/uL (0.0-0.8); MONO % 7.1 % (2.0-8.0); NEUTROPHILS # 2.1 10^3/uL (1.5-8.5); NEUTROPHILS % 53.7 % (36.0-66.0); PLATELET COUNT, AUTOMATED 234 10^3/uL (150-450); RED BLOOD COUNT 4.15 10^6/uL (4.00-5.40); WHITE BLOOD COUNT 3.9 10^3/uL (4.0-10.0)
== END ==
LOC: M LAB 14:15
PROVIDERS: ATTEND Family Medicine
DX: R79.89 Other specified abnormal findings of blood chemistry (principal)

== ENCOUNTER → 2023-08-23 | Outpatient (CLI) | payer BC | LOC: M WHC 16:12 | PROVIDERS: ATTEND Obstetrics & Gynecology | DX: Z12.31 Encounter for screening mammogram for malignant neoplasm of breast (principal) ==

== ENCOUNTER → 2023-11-30 | Outpatient (CLI) | payer OTHER | LOC: M PAIN 15:00 | PROVIDERS: ATTEND Anesthesiology | DX: M51.16 Intervertebral disc disorders with radiculopathy, lumbar region (principal); G89.29 Other chronic pain; G43.909 Migraine, unspecified, not intractable, without status migrainosus; K21.9 Gastro-esophageal reflux disease without esophagitis; D50.9 Iron deficiency anemia, unspecified; K59.00 Constipation, unspecified; Z87.891 Personal history of nicotine dependence; Z79.899 Other long term (current) drug therapy; Z88.1 Allergy status to other antibiotic agents; Z88.2 Allergy status to sulfonamides; Z88.0 Allergy status to penicillin ==

== ENCOUNTER → 2023-12-20 | Outpatient (CLI) | payer OTHER | LOC: M RAD 07:31 | PROVIDERS: ATTEND Anesthesiology | DX: M51.16 Intervertebral disc disorders with radiculopathy, lumbar region (principal) ==

== ENCOUNTER → 2024-01-04 | Outpatient (CLI) | payer OTHER | LOC: M PAIN 11:15 | PROVIDERS: ATTEND Anesthesiology | DX: M51.16 Intervertebral disc disorders with radiculopathy, lumbar region (principal); G89.29 Other chronic pain; G43.909 Migraine, unspecified, not intractable, without status migrainosus; K21.9 Gastro-esophageal reflux disease without esophagitis; D50.9 Iron deficiency anemia, unspecified; Z87.891 Personal history of nicotine dependence; Z79.899 Other long term (current) drug therapy; Z88.1 Allergy status to other antibiotic agents; Z88.2 Allergy status to sulfonamides; Z88.0 Allergy status to penicillin ==

== ENCOUNTER → 2024-05-22 | Outpatient (CLI) | payer BC ==
[~2024-05-22] MED LIST changes: +ONDA-282; +ONDA-282 PO; -ONDA4TAB6; -ONDA4TAB6 PO
== END ==
LOC: M LAB 17:15
PROVIDERS: ATTEND Internal Medicine Gastroenterology
DX: R11.0 Nausea (principal); K59.04 Chronic idiopathic constipation

== ENCOUNTER → 2024-05-24 | Outpatient (CLI) | payer BC | LOC: M PAIN 08:15 | PROVIDERS: ATTEND Anesthesiology | DX: M51.16 Intervertebral disc disorders with radiculopathy, lumbar region (principal); G89.29 Other chronic pain; G43.909 Migraine, unspecified, not intractable, without status migrainosus; K21.9 Gastro-esophageal reflux disease without esophagitis; D50.9 Iron deficiency anemia, unspecified; F39 Unspecified mood [affective] disorder; K59.00 Constipation, unspecified; R10.9 Unspecified abdominal pain; Z87.891 Personal history of nicotine dependence; Z79.899 Other long term (current) drug therapy; Z88.0 Allergy status to penicillin; Z88.1 Allergy status to other antibiotic agents; Z88.2 Allergy status to sulfonamides; Z88.8 Allergy status to other drugs, medicaments and biological substances ==

== ENCOUNTER → 2024-06-01 | Outpatient (CLI) | payer BC ==
[~2024-06-01] MED LIST changes: +GABA-1490 PO; -GABA600T4 PO
== END ==
LOC: M RAD 15:34
PROVIDERS: ATTEND Internal Medicine Gastroenterology
DX: K59.04 Chronic idiopathic constipation (principal)

== ENCOUNTER → 2024-07-05 | Outpatient (CLI) | payer BC | LOC: M PAIN 11:30 | PROVIDERS: ATTEND Nurse Practitioner Family | DX: M47.816 Spondylosis without myelopathy or radiculopathy, lumbar region (principal); M47.817 Spondylosis without myelopathy or radiculopathy, lumbosacral region; G89.29 Other chronic pain; G43.909 Migraine, unspecified, not intractable, without status migrainosus; K21.9 Gastro-esophageal reflux disease without esophagitis; D50.9 Iron deficiency anemia, unspecified; K59.00 Constipation, unspecified; Z87.891 Personal history of nicotine dependence; Z79.899 Other long term (current) drug therapy; Z88.0 Allergy status to penicillin; Z88.1 Allergy status to other antibiotic agents; Z88.2 Allergy status to sulfonamides; Z88.8 Allergy status to other drugs, medicaments and biological substances ==

== ENCOUNTER → 2024-07-06 | Outpatient (CLI) | payer BC | LOC: M PAIN 16:45 | PROVIDERS: ATTEND Anesthesiology | DX: M47.816 Spondylosis without myelopathy or radiculopathy, lumbar region (principal); G43.909 Migraine, unspecified, not intractable, without status migrainosus; K21.9 Gastro-esophageal reflux disease without esophagitis; D50.9 Iron deficiency anemia, unspecified; K59.00 Constipation, unspecified; Z87.891 Personal history of nicotine dependence; Z79.899 Other long term (current) drug therapy; Z88.1 Allergy status to other antibiotic agents; Z88.2 Allergy status to sulfonamides; Z88.0 Allergy status to penicillin ==

== ENCOUNTER → 2024-09-11 | Outpatient (CLI) | payer BC ==
[~2024-09-11] MED LIST changes: +[UNRECOGNIZED DRUG - CODE] PO; -[UNRECOGNIZED DRUG - CODE] PO
== END ==
LOC: M PAIN 12:45
PROVIDERS: ATTEND Anesthesiology
DX: M47.816 Spondylosis without myelopathy or radiculopathy, lumbar region (principal); G89.29 Other chronic pain; M54.50 Low back pain, unspecified; G43.909 Migraine, unspecified, not intractable, without status migrainosus; K21.9 Gastro-esophageal reflux disease without esophagitis; D50.9 Iron deficiency anemia, unspecified; K59.00 Constipation, unspecified; Z79.899 Other long term (current) drug therapy; Z87.891 Personal history of nicotine dependence; Z88.2 Allergy status to sulfonamides; Z88.1 Allergy status to other antibiotic agents; Z88.8 Allergy status to other drugs, medicaments and biological substances

== ENCOUNTER → 2024-09-14 | Outpatient (CLI) | payer BC ==
[~2024-09-14] MED LIST changes: +ISOVUE-M 300 61% 15ML VIAL As Ordered ONE; +LIDOCAINE 1% SDV 30ML VIAL As Ordered ONE; +TRIAMCINOLONE ACETONIDE SUSP 40MG/ML 1ML VIAL As Ordered ONE
== END ==
LOC: M PAIN 14:00
PROVIDERS: ATTEND Anesthesiology
DX: M47.816 Spondylosis without myelopathy or radiculopathy, lumbar region (principal); G89.29 Other chronic pain; G43.909 Migraine, unspecified, not intractable, without status migrainosus; K21.9 Gastro-esophageal reflux disease without esophagitis; D50.9 Iron deficiency anemia, unspecified; K59.00 Constipation, unspecified; Z79.891 Long term (current) use of opiate analgesic; Z79.899 Other long term (current) drug therapy; Z88.2 Allergy status to sulfonamides; Z88.1 Allergy status to other antibiotic agents; Z88.8 Allergy status to other drugs, medicaments and biological substances
CPT/HCPCS: 64493; 64494; J0665; J3301; Q9967

== ENCOUNTER → 2024-10-11 | Outpatient (CLI) | payer BC ==
[~2024-10-11] MED LIST changes: -ISOVUE-M 300 61% 15ML VIAL As Ordered ONE; -LIDOCAINE 1% SDV 30ML VIAL As Ordered ONE; -TRIAMCINOLONE ACETONIDE SUSP 40MG/ML 1ML VIAL As Ordered ONE
== END ==
LOC: M PAIN 11:00
PROVIDERS: ATTEND Nurse Practitioner Family
DX: M47.816 Spondylosis without myelopathy or radiculopathy, lumbar region (principal); M47.817 Spondylosis without myelopathy or radiculopathy, lumbosacral region; G89.29 Other chronic pain; G43.909 Migraine, unspecified, not intractable, without status migrainosus; K21.9 Gastro-esophageal reflux disease without esophagitis; D50.9 Iron deficiency anemia, unspecified; K59.00 Constipation, unspecified; F39 Unspecified mood [affective] disorder; Z87.891 Personal history of nicotine dependence; Z79.891 Long term (current) use of opiate analgesic; Z79.899 Other long term (current) drug therapy; Z88.1 Allergy status to other antibiotic agents; Z88.2 Allergy status to sulfonamides; Z88.0 Allergy status to penicillin

== ENCOUNTER → 2024-12-25 | Outpatient (CLI) | payer BC ==
[2024-12-25 17:38] LABS: BASO % 0.8 % (0.0-1.0); EOS # 0.1 10^3/uL (0.0-0.5); EOS % 2.8 % (0.0-3.0); HEMATOCRIT 37.7 % (36.0-47.0); HEMOGLOBIN 12.4 g/dl (12.0-15.5); LYMPH # 2.1 10^3/uL (1.5-5.0); LYMPH % 54.7 % (24.0-44.0); MEAN CORPUSCULAR HEMOGLOBIN 31.2 pg (27.0-33.0); MEAN CORPUSCULAR HGB CONC 32.9 g/dl (32.0-36.5); MONO # 0.2 10^3/uL (0.0-0.8); MONO % 5.7 % (2.0-8.0); NEUTROPHILS # 1.4 10^3/uL (1.5-8.5); PLATELET COUNT, AUTOMATED 236 10^3/uL (150-450); RED BLOOD COUNT 3.97 10^6/uL (4.00-5.40); WHITE BLOOD COUNT 3.9 10^3/uL (4.0-10.0)
[2024-12-25 18:11] LABS: ALBUMIN 3.6 G/DL (3.2-5.2); ALKALINE PHOSPHATASE 57 U/L (35-104); ALT/SGPT 18 U/L (7.0-40); AST/SGOT 12 U/L (<34); BILIRUBIN,TOTAL 0.2 MG/DL (0.3-1.2); BLOOD UREA NITROGEN 18 MG/DL (9-23); CARBON DIOXIDE LEVEL 26 MMOL/L (20-31); CHLORIDE LEVEL 109 MMOL/L (98-107); CREATININE FOR GFR 0.73 MG/DL (0.55-1.30); GLOMERULAR FILTRATION RATE > 60.0 (>58); GLUCOSE, FASTING 89 MG/DL (60-100); POTASSIUM SERUM 4.2 MMOL/L (3.5-5.1); SODIUM LEVEL 141 MMOL/L (136-145); TOTAL PROTEIN 6.3 G/DL (5.7-8.2)
[2024-12-25 18:13] LABS: THYROID STIMULATING HORMONE 1.222 uIU/ML (0.55-4.78)
[2024-12-25 18:24] LABS: HEMOGLOBIN A1c 5.1 % (4.0-6.0)
== END ==
LOC: M LAB 16:55
PROVIDERS: ATTEND Family Medicine
DX: E16.2 Hypoglycemia, unspecified (principal); E66.01 Morbid (severe) obesity due to excess calories

== ENCOUNTER → 2025-06-17 | Outpatient (CLI) | payer BC ==
[~2025-06-17] MED LIST changes: -PHEN-239 PO; +PHEN37.511 PO; +TOPI-257 PO; -TOPI100T9 PO
[2025-06-17 19:18] LABS: BASO # 0.0 10^3/uL (0.0-0.2); BASO % 1.0 % (0.0-1.0); EOS # 0.1 10^3/uL (0.0-0.5); EOS % 3.0 % (0.0-3.0); LYMPH # 1.9 10^3/uL (1.5-5.0); LYMPH % 48.5 % (24.0-44.0); MONO # 0.3 10^3/uL (0.0-0.8); MONO % 7.5 % (2.0-8.0); NEUTROPHILS # 1.6 10^3/uL (1.5-8.5); NEUTROPHILS % 39.7 % (36.0-66.0); PLATELET COUNT, AUTOMATED 263 10^3/uL (150-450)
[2025-06-17 19:40] LABS: ESTIMATED AVERAGE GLUCOSE 111.0 MG/DL (60-110)
[2025-06-17 19:43] LABS: ALT/SGPT 16 U/L (7.0-40); AST/SGOT 14 U/L (<34); CALCIUM LEVEL 8.3 MG/DL (8.5-10.1); CARBON DIOXIDE LEVEL 23 MMOL/L (20-31); CHLORIDE LEVEL 112 MMOL/L (98-107); CHOLESTEROL LEVEL 190 MG/DL (<200); CHOLESTEROL RISK RATIO 2.17 (<5); CREATININE FOR GFR 0.83 MG/DL (0.55-1.30); GLOMERULAR FILTRATION RATE 86.9 (>58); LDL CHOLESTEROL 82.5 MG/DL (<100); NON-HDL-C 102.5 MG/DL; POTASSIUM SERUM 4.7 MMOL/L (3.5-5.1); SODIUM LEVEL 143 MMOL/L (136-145); TRIGLYCERIDES LEVEL 100 MG/DL (<150)
[2025-06-17 19:45] LABS: TOTAL 25(OH) VITAMIN D 9.0 NG/ML (20.0-100.0)
[2025-06-17 19:49] LABS: VITAMIN B12 LEVEL > 2000 PG/ML (211-911)
== END ==
LOC: M LAB 17:30
PROVIDERS: ATTEND Surgery
DX: Z98.84 Bariatric surgery status (principal); E66.01 Morbid (severe) obesity due to excess calories

== ENCOUNTER → 2025-09-05 | Outpatient (RCR) | LOC: M EMPSKH 08-21 14:19 | PROVIDERS: ATTEND Family Medicine | DX: Z20.828 Contact with and (suspected) exposure to other viral communicable diseases (principal) ==

== ENCOUNTER → 2025-09-05 | Outpatient (CLI) | payer BC ==
[2025-09-05 16:29] LABS: ALT/SGPT 19 U/L (7.0-40); AST/SGOT 18 U/L (<34)
== END ==
LOC: M LAB 15:18
PROVIDERS: ATTEND Physician Assistant Medical
DX: M54.16 Radiculopathy, lumbar region (principal)